=== PATIENT | male | born 1985 | race Caucasian/White ===

== ENCOUNTER 2017-01-31 15:57 | Inpatient (IN) | payer BC ==
[~2017-01-31] VITALS: Ht 175.3 cm; Wt 111.0 kg
--- NOTE | 2017-01-31 16:28 | NUR ---
PT TO ROOM 5 PER WC. NO CHANGE IN CONDITION
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
[2017-01-31] MEDS ORDERED: NO ROUTINE MEDS (16:39)
[2017-01-31] MEDS ORDERED: HYDROCODONE/APAP 5 mg/325 mg TABLET PO ONE (16:45)
[2017-01-31 16:52] LABS: HCT - HEMATOCRIT 46.9 % (41-53); HGB - HEMOGLOBIN 15.5 GM/DL (13.5-17.5); MEAN CORPUSCULAR HGB 26.9 UUG (26-34); MEAN CORPUSCULAR VOLUME 81.4 UM3 (80-100); MEAN PLATELET VOLUME 9.6 UM3 (9.4-12.4); RED BLOOD COUNT 5.76 M/MM3 (4.50-5.90); WBC - WHITE BLOOD COUNT 12.2 T/MM3 (4.5-11.0)
[2017-01-31 17:26] LABS: BAND NEUTROPHILS # 2.1 T/MM3; LYMPHOCYTES # (MANUAL) 0.9 T/MM3 (1-4.8); MONOCYTES # (MANUAL) 0.1 T/MM3 (0-0.8); NEUTROPHILS #(MANUAL)-ABSOLUTE 9.2 T/MM3 (1.8-7.7); TOTAL CELLS COUNTED 100 %
[2017-01-31] MEDS ORDERED: LEVOFLOXACIN 750 mg IVPB 750 MG in D5W 150 ML IV ONE (18:15)
[2017-01-31] MEDS ORDERED: NORMAL SALINE 1,000 ML IV ONE ×2 (18:15→20:15)
[2017-01-31 18:54] LABS: ALBUMIN/GLOBULIN RATIO 1.5 RATIO (1.1-2.2); ALKALINE PHOSPHATASE 73 U/L (38-126); ALT (SGPT) 72 U/L (21-72); ANION GAP 15 MEQ/L (5-15); AST (SGOT) 36 U/L (17-59); BUN/CREATININE RATIO 10 RATIO (6-26); CALCIUM 9.1 MG/DL (8.4-10.2); CHLORIDE 103 MEQ/L (98-107); CO2 - CARBON DIOXIDE 22 MEQ/L (22-30); CREATININE 0.7 MG/DL (0.8-1.5); GLOMERULAR FILTRATION RATE 131; GLUCOSE 133 MG/DL (75-110); LACTATE - LACTIC ACID 3.3 MMOL/L (0.6-2.2); POTASSIUM 3.5 MEQ/L (3.6-5); SODIUM 140 MEQ/L (134-144); TOTAL PROTEIN 6.7 G/DL (6.3-8.2)
--- NOTE | 2017-01-31 19:05 | NUR ---
ADMIT PT ADMITTED TO ROOM 135, BROUGHT FROM ER VIA WHEELCHAIR. PT ORIENTED TO ROOM.
[2017-01-31] MEDS: NORMAL SALINE 1,000 ML IV SCH (19:23)
[2017-01-31] MEDS ORDERED: VANCOMYCIN 1,000 MG in NORMAL SALINE 250 ML IV SCH (19:45)
[2017-01-31] MEDS ORDERED: ONDANSETRON 4mg/2ml INJECTION IV PRN (20:00)
[2017-01-31] MEDS ORDERED: PROMETHAZINE 25 MG INJECTION IV PRN (20:00)
[2017-01-31] MEDS ORDERED: MILK OF MAGNESIA 30 ML SUSP PO PRN (20:00)
[2017-01-31] MEDS ORDERED: METOCLOPRAMIDE 10mg/2ml INJECTION IV PRN (20:00)
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
[2017-01-31] MEDS: IBUPROFEN 600 MG TABLET PO PRN (20:51)
[2017-01-31 22:16] VITALS: Ht 175.3 cm; Wt 111.0 kg
[2017-01-31 22:29] VITALS: BP 113/67; PULSE 102; RESP 20; TEMP 101.3; O2SAT 96
[2017-01-31 22:40] VITALS: PULSE 106; RESP 20; O2SAT 96
[2017-02-01] MEDS: HEPARIN SUB-Q 5,000 unit/0.5ml vial SQ SCH ×3 (01:21→16:40)
[2017-02-01] MEDS: NORMAL SALINE 1,000 ML IV SCH ×4 (02:19→14:55)
[2017-02-01 04:30] VITALS: BP 124/73; PULSE 97; RESP 16; TEMP 101.7; O2SAT 94
--- NOTE | 2017-02-01 06:15 | NUR ---
SUMMARY PT ALERT AND ORIENTED. SBA WITH TRANSFERS. REPORTS PAIN IN HIS AFFECTED FOOT, RATED 7/10, NORCO GIVEN AND EFFECTIVE. PT HAS TWO OPEN WOUNDS ON THE LEFT FOOT BETWEEN 3-4 TOES AND 4-5 TOES, CULTURES WERE OBTAINED AND SENT TO LAB. PT HAS BEEN PLEASANT AND COOPERATIVE. VSS, PT HAS HAD AN ELEVATED TEMP.
[2017-02-01 08:00] VITALS: BP 132/76; PULSE 96; RESP 17; TEMP 102.9; O2SAT 96
[2017-02-01] MEDS ORDERED: VANCOMYCIN 1,250 MG in NORMAL SALINE 250 ML IV SCH (08:00)
[2017-02-01] MEDS ORDERED: VANCOMYCIN 2,000 MG in NORMAL SALINE 500 ML IV ONE (08:30)
--- NOTE | 2017-02-01 08:59 | NUR ---
ADAMA NUNEZ SCORE IS 5. Addendum: 02/01/17 at 0900 by SHU REYNOSO Amended: Links added.
--- NOTE | 2017-02-01 09:21 | DI ---
Indication: ITS.REASON: left foot cellulitis with possibly tunneling wound, look for oste PROCEDURE: FOOT LEFT 2 VIEWS: Encounter: Initial Comparison: None Findings: There is no acute fracture, dislocation or malalignment identified. No periosteal reaction or osseous destruction to suggest osteomyelitis. Impression: No acute osseous abnormality. .
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
--- NOTE | 2017-02-01 10:41 | NUR ---
VANCOMYCIN CONSULT: Dx: CELLULITIS OF LEFT FOOT AND SYMPTOMS OF SEPSIS Current Renal Fx: SCr = 0.7mg/dl. Will give Vancomycin 1750mg IV q8hrs. Will continue to monitor and adjust regimen to maintain therapeutic levels. Thank you.
[2017-02-01 11:38] LABS: BASOPHILS % (AUTO) 0.2 % (0-2); HCT - HEMATOCRIT 40.2 % (41-53); HGB - HEMOGLOBIN 13.3 GM/DL (13.5-17.5); IMMATURE GRANULOCYTE # (AUTO) 0.02 T/MM3 (0.00-0.03); IMMATURE GRANULOCYTE % (AUTO) 0.2 % (0.0-0.5); LYMPHOCYTES # (AUTO) 1.4 T/MM3 (1-4.8); LYMPHOCYTES % (AUTO) 12.3 % (23-45); MEAN CORPUSCULAR HGB CONC(MCHC 33.1 GM/DL (31-37); MEAN CORPUSCULAR VOLUME 81.5 UM3 (80-100); MEAN PLATELET VOLUME 9.5 UM3 (9.4-12.4); MONOCYTES # (AUTO) 0.8 T/MM3 (0-0.8); MONOCYTES % (AUTO) 6.8 % (0-9.0); NEUTROPHILS % (AUTO) 80.5 % (33-66); RED BLOOD COUNT 4.93 M/MM3 (4.50-5.90); WBC - WHITE BLOOD COUNT 11.2 T/MM3 (4.5-11.0)
[2017-02-01] MEDS: TERBINAFINE 1% CREAM 15gm TUBE TOP SCH ×2 (11:39→16:41)
[2017-02-01 11:47] LABS: ANION GAP 12 MEQ/L (5-15); BUN/CREATININE RATIO 10 RATIO (6-26); CALCIUM 8.1 MG/DL (8.4-10.2); CHLORIDE 104 MEQ/L (98-107); CO2 - CARBON DIOXIDE 21 MEQ/L (22-30); CREATININE 0.7 MG/DL (0.8-1.5); GLOMERULAR FILTRATION RATE 131; GLUCOSE 126 MG/DL (75-110); SODIUM 137 MEQ/L (134-144)
[2017-02-01] MEDS ORDERED: POTASSIUM CHLORIDE 20 MEQ TABLET PO ONE (12:15)
[2017-02-01] MEDS: IBUPROFEN 600 MG TABLET PO PRN (13:43)
--- NOTE | 2017-02-01 15:00 | PDWOUND ---
Wound Documentation Wound Management Wound : Location Modifier: Left, Lower Wound Location: Foot Wound Type: Other (Cellulitsis/ ulcers) Wound Dressing Frequency: daily Wound Duration: 4 days Wound Dressing Status: FOUND: Moist Wound Drainage Amount: Moderate Wound Drainage Description: Serous Wound Drainage Odor: None/Absent Wound General Appearance: FOUND Reddened, FOUND Unapproximated Wound Bed: slough, eschar, fibrin Periwound Description: Bright Red Wound Packing Type: FOUND: Gauze Packing Strips Wound Primary Dressing Type: Gauze Roll/Wrap Comments Consulted Dr Hernandez after seeing pt. Between 3 and 4th and 4th and 5th toes open area that are full of slough. Very painful. Dr ordered MRI and possible debridment tomorrow or . SHU ZAMAN RN Feb 01, 2017 15:00
[2017-02-01 15:17] VITALS: BP 117/73; PULSE 91; RESP 24; TEMP 100.3; O2SAT 96
[2017-02-01] MEDS ORDERED: SALINE FLUSH 10ml SYRINGE ONE (15:30)
[2017-02-01] MEDS ORDERED: GADOBUTROL 10mMol/10ml INJECTION IV ONE (15:30)
--- NOTE | 2017-02-01 15:55 | DI ---
Indication: ITS.REASON: XRAY FOR FOREIGN BODY PRIOR TO MRI PROCEDURE: ORBIT FOR MR PROCEDURE: Encounter: Initial Comparison: None Findings: Nonobstructive nonspecific bowel gas pattern with scattered small bowel air-fluid levels. Moderate stool in the colon. Bony structures are unremarkable. No metallic foreign body identified within the abdomen. Impression: No radiopaque foreign body identified in the abdomen. .
[2017-02-01 16:34] VITALS: BP 129/81; PULSE 84; RESP 24; TEMP 98.8; O2SAT 95
[2017-02-01] MEDS: VANCOMYCIN 1,750 MG in NORMAL SALINE 500 ML IV SCH (16:41)
--- NOTE | 2017-02-01 16:51 | DI ---
Indication: ITS.REASON: Foot swelling, possible abscess left foot. PROCEDURE: MRI FOOT LEFT W/WO CONTRAST: Encounter: Initial Comparison: Left foot radiographs from today Technique: Multiplanar multisequence MR imaging of the left foot was performed with and without contrast. Contrast: 10 mL Gadavist Findings: Bone marrow signal intensity is within normal limits. No acute fracture identified. No dislocation. Diffuse subcutaneous edema is seen particularly in the dorsum of the midfoot. The foot flexor and extensor tendons are grossly intact. No areas of abnormal bony enhancement. There is enhancement within the subcutaneous edema in the midfoot with a lateral predominance. There are couple small pockets of fluid surrounding the fourth toe proximal phalanx best seen on postcontrast coronal images five through nine. The medial pocket measures 10 x 4 mm while the lateral pocket measures 10 x 6 mm. These may be communicating inferiorly. No additional rim-enhancing fluid collections identified. Impression: 1. Evidence of extensive cellulitis with small pockets of abscess surrounding the fourth toe proximal phalanx and PIP joint. These measure about 1 cm in maximal dimension. 2. No MR evidence of osteomyelitis currently. .
--- NOTE | 2017-02-01 18:16 | NUR ---
UPDATE/SUMMARY PTS HAS BEEN A&OX3 TODAY, PTS WOUND WAS ASSESSED BY THE WOUND TEAM AND DR CLOUD.PT WAS SENT TO MRI WHICH IT SHOWED NO SIGNS OF OSTEOMYELITIS, HE WILL BE GOING TO SURGERY FOR A DEBRIDEMENT TOMORROW. PTS NORCO TIME FRAME WAS CHANGED TO Q 4HRS. PT HAS RECEIVED 2 TODAY SO FAR, HE WAS ALSO FEBRILE THIS AM. PT IS NO LONGER FEBRILE. BY WOUND TEAM PLEASE DO NOT USE FUNGAL CREAM. WILL CONTINUE TO MONITOR PT.
[2017-02-01] MEDS ORDERED: HYDROMORPHONE 2mg/ml INJECTION IV PRN (18:45)
--- NOTE | 2017-02-01 22:15 | NUR ---
comfort has been visiting pleasantly. States pain to foot increasing, Dilaudid offered
--- NOTE | 2017-02-01 23:15 | NUR ---
comfort states no relief of pain from Dilaudid, [place] given. Takes with snack, then NPO for noc
[2017-02-02] VITALS (27 sets, daily range): BP systolic 94–142; BP diastolic 49–80; PULSE 16–104; RESP 12–85; TEMP 97.3–101.7; O2SAT 82–99
[2017-02-02] MEDS: VANCOMYCIN 1,750 MG in NORMAL SALINE 500 ML IV SCH ×2 (01:59→09:02)
[2017-02-02] MEDS: HEPARIN SUB-Q 5,000 unit/0.5ml vial SQ SCH ×3 (02:03→17:21)
[2017-02-02] MEDS: ACETAMINOPHEN 325 MG TABLET PO PRN ×2 (04:39→16:30)
--- NOTE | 2017-02-02 04:40 | NUR ---
rest has been sleeping. Awakens easily as lab drawn. States pain increasing. Temp is 101.4. [place] and tylenol given w/ sm. amt water
[2017-02-02 05:26] LABS: BASOPHILS % (AUTO) 0.2 % (0-2); EOSINOPHILS # (AUTO) 0.1 T/MM3 (0-0.5); EOSINOPHILS % (AUTO) 0.9 % (0-4); HCT - HEMATOCRIT 40.3 % (41-53); HGB - HEMOGLOBIN 13.5 GM/DL (13.5-17.5); IMMATURE GRANULOCYTE # (AUTO) 0.02 T/MM3 (0.00-0.03); IMMATURE GRANULOCYTE % (AUTO) 0.2 % (0.0-0.5); LYMPHOCYTES # (AUTO) 2.2 T/MM3 (1-4.8); LYMPHOCYTES % (AUTO) 17.6 % (23-45); MEAN CORPUSCULAR HGB 27.2 UUG (26-34); MEAN CORPUSCULAR HGB CONC(MCHC 33.5 GM/DL (31-37); MEAN CORPUSCULAR VOLUME 81.1 UM3 (80-100); MEAN PLATELET VOLUME 9.6 UM3 (9.4-12.4); MONOCYTES # (AUTO) 1.2 T/MM3 (0-0.8); MONOCYTES % (AUTO) 10.1 % (0-9.0); NEUTROPHILS #(AUTO)-ABSOLUTE 8.8 T/MM3 (1.8-7.7); RED BLOOD COUNT 4.97 M/MM3 (4.50-5.90); WBC - WHITE BLOOD COUNT 12.3 T/MM3 (4.5-11.0)
[2017-02-02 05:43] LABS: ANION GAP 11 MEQ/L (5-15); BUN/CREATININE RATIO 13 RATIO (6-26); CALCIUM 8.2 MG/DL (8.4-10.2); CHLORIDE 104 MEQ/L (98-107); CO2 - CARBON DIOXIDE 23 MEQ/L (22-30); CREATININE 0.7 MG/DL (0.8-1.5); GLOMERULAR FILTRATION RATE 131; GLUCOSE 116 MG/DL (75-110); POTASSIUM 3.7 MEQ/L (3.6-5); SODIUM 138 MEQ/L (134-144)
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
[2017-02-02] MEDS: HYDROMORPHONE 2mg/ml INJECTION IV PRN (08:58)
[2017-02-02] MEDS ORDERED: LR 1,000 ML IV PRN (12:19)
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
[2017-02-02] MEDS ORDERED: LIDOCAINE (2%) 100 MG/5 ML PF SYRINGE IV ONE (12:29)
[2017-02-02] MEDS ORDERED: PROPOFOL 200mg 20 ML IV ONE (12:29)
[2017-02-02] MEDS ORDERED: FENTANYL 100mcg/2ml INJECTION ONE ×2 (12:30→12:39)
[2017-02-02] MEDS ORDERED: LIDOCAINE 1% (10mg/ml) 30ml SDV ONE (12:39)
[2017-02-02] MEDS ORDERED: BUPIVACAINE 0.25% (2.5mg/ml) INJ 30ml SDV ONE (12:39)
[2017-02-02] MEDS ORDERED: PROPOFOL 500mg 50 ML IV ONE (12:49)
[2017-02-02] MEDS ORDERED: ROPIVACAINE 0.5% (5mg/ml) 30ml INJ ONE (13:00)
--- NOTE | 2017-02-02 13:32 | NUR ---
VERBAL CONSENT FOR POPLITEAL NERVE BLOCK RECIEVED VIA PHONE FROM MOTHER, MEKA DENG WITH ASSISTANCE OF CEMENT WORKER AT HER PLACE OF EMPLOYMENT. VERBAL CONSENT WITNESSED BY EMIR LIMA RN AND DEISY CHAUDHARY RN.
--- NOTE | 2017-02-02 13:51 | ANESPD ---
Peripheral Nerve Blockade Physician: Valerie Covarrubias MD Date: 02/02/17 Surgical Procedure: I and D Left Foot Abcess Discussion Discussed risks/options/alternatives of anesthesia and questions answered. Patient consents. Nursing pain assessment noted. Block Start: 13:36 Block Stop: 13:46 Block Employed: Popliteal Indication: post-operative pain Approach: left side confirmed Position: RLD Patient: Consent, risks/benefits discussed, Informed, post block act. discussed Monitors: EKG, SpO2, NIBP IV Sedation: No Sedation: Awake Initial Vital Signs First Documented Vital Signs Date Time Temp Pulse Resp B/P Pulse Ox O2 Delivery O2 Flow Rate FiO2 01/31/17 16:00 98.1 121 22 134/85 99 Room Air Post Vital Signs Vital Signs Date Time Temp Pulse Resp B/P Pulse Ox O2 Delivery O2 Flow Rate FiO2 02/02/17 13:07 99.5 104 19 108/73 94 Room Air Initial Pain Score: 4 Post Block Score: 3 Ultrasound Used?: Yes Nerve Simulator Parathesia/Pain: with needle placement Injectate Ropivacaine (%): 0.5 Ropivacaine (mL): 30 Was Epi 1:200,000 Used?: No Injection Injection made incrementally with constant monitoring and aspiration every [5] ml. KRAIG MARIANO CRNA Feb 02, 2017 13:51
--- NOTE | 2017-02-02 13:52 | ANESPO ---
Post-Op Note Date 02/02/17 Time: 13:51 Status Pt Participated in Evaluation: Pt participated in person Vital Signs Date Time Temp Pulse Resp B/P Pulse Ox O2 Delivery O2 Flow Rate FiO2 02/02/17 13:07 99.5 104 19 108/73 94 Room Air Respiratory Function: Airway patent, Regular respirations Cardiovascular Function: Regular pulse Telemetry Pattern: SR Pain Level Intensity: 3 Unable to Assess Pain Due To: Pt Sleeping Hydration: IV infusing Complications during Recovery None apparent Follow-Up Instructions Instructions Per Surgeon KRAIG MARIANO CRNA Feb 02, 2017 13:52
--- NOTE | 2017-02-02 15:32 | PDOPERATE ---
Operative Report Date of Operation 02/02/17 Side: Left Preoperative Diagnosis: other (left foot abscess) Postoperative Diagnosis Same as preoperative diagnosis. Operation/Procedure: other (debridement and drainage of left foot abscess) Surgeon Jose Hernandez MD [employer] None Complications None. Anesthesia Plan: GETA Estimated Blood Loss See Anesthesia Record. Fluids Please See Anesthesia Record. Description of Operation Mr. Mccurdy and his left foot were identified and marked in the the preoperative holding area. He was then brought back to the operating suite and proper anesthesia was administered. He was then positioned supine on the operating table. The left lower extremity was then prepped and draped in my normal sterile fashion. Timeout was performed with all operating room personnel. An approximately given immediately before surgery because he is on scheduled vancomycin and we were taking intraoperative cultures. He had 2 open ulcerations largest measuring 2 cm in the webspace between the third and fourth toe and another ulceration measuring 1 cm between the fourth and fifth toes. As a proximally half centimeter skin bridge between these 2 ulcerations plantarly. Within both ulcerations was fibrin appearing subcutaneous tissue was also gross drainage of pus. I begun by sharply debriding both ulcerations to remove the necrotic subcutaneous tissue. I was able to express pus from the foot through both ulcerations with gross pus being plantar. While milking out the pus to new openings develops in the plantar skin proximal to the fourth toe. Drop cultures were taken deep into both ulcerations. I then irrigated the wound with 3 L of normal saline using cystoscopy tubing. I then placed a quarter-inch Osborn drain that was cut down into largest ulcer and came out through the ulcer between the fourth and fifth toes I stuck a second Osborn drain into one of the plantar wounds. This was then dressed with 4 x 4's and a Kerlix. He was then allowed awake from general anesthesia and taken to the recovery room in the care of anesthesia he tolerated procedure well there were no complications. FELICIA HERNANDEZ MD Feb 02, 2017 15:32
--- NOTE | 2017-02-02 16:11 | NUR ---
VANCOMYCIN CONSULT (Day 3) S: 31 y/o M admitted with a left foot abscess. Started on vancomycin empirically. Pharmacy consulted to manage vancomycin therapy. O: Ht=69 inches, Xs=945 kg, adjusted BW~88 kg SCr=0.7 mg/dL, CrCl>120 mL/min WBC=12.3 T/mm3 24-h Bbho=511.7F L foot MRI: extensive cellulitis, no MR evidence of osteomyelitis currently L foot (non-surgical) culture: Staphylococcus aureus L foot surgical culture: pending Blood cultures, 2 of 2: no growth to date (24 hours) Vancomycin trough concentration~14.5 mcg/mL A/P: Day 3 vancomycin empirically for a left foot abscess. Pt still febrile past two days. Leukocytosis persists. Surgical debridement and drainage completed today. Goal vancomycin trough concentration 15-20 mcg/mL. Will increase vancomycin to 2 g IV q8h. Will continue to follow renal function, clinical status, and await final cultures. Thank you for the consult, Pamela Manning, PharmD, BCPS
[2017-02-02] MEDS: VANCOMYCIN 2 G in NORMAL SALINE 500 ML IV SCH (17:22)
--- NOTE | 2017-02-02 17:50 | NUR ---
Shift Summary Patient alert and oriented x3. VSS. On RA. Patient c/o of pain in left foot this morning, Dilaudid given. See eMar. Patient went to OR for I&D with Dr. Hernandez at 1200, returned with popliteal block and has not c/o pain since. Patient up ad aurelia in room. Foot elevated while in bed. Patient has dressing that was applied in OR, no drainage noted on dressing. IV infusing as ordered through right AC IV. Patient has had adequate urine output today, no BM. Patient is pleasant and cooperative with cares.
--- NOTE | 2017-02-02 20:46 | PNPDOC ---
Subjective Date DATE: 02/02/17 TIME: 20:32 Subjective Mr. Mccurdy complained of pain in his foot when seen this morning. He was seen prior to surgery at which time erythema was improved and limited to only a small area in the anterolateral left foot. He had recurrent fever overnight but denied chills. He denied dyspnea, lightheadedness, palpitations, or nausea. He has not yet ambulated or attempted to ambulate to and from the bathroom. Objective Vital Signs Vital signs Vital Signs Date Time Temp Pulse Resp B/P Pulse Ox O2 Delivery O2 Flow Rate FiO2 02/02/17 17:48 100.2 98 18 127/69 93 Room Air EXAM General-NAD, alert, fluent speech HEENT-conjunctiva clear, conjugate gaze, sclera anicteric Lungs-respirations nonlabored, good airflow, breath sounds clear Cardiac-regular rhythm, S1-S2 Abd-soft, nontender, bowel sounds present Ext-+1 edema left foot, right lower extremity without edema Skin-localized area of erythema over the anterolateral dorsal left foot centered around the fourth fifth toe interspace/metatarsals. There continues to be maceration between the toes and purulent drainage evident between the third and fourth and fourth and fifth toes. Neuro-sensation intact bilateral lower extremities Psych-calm, cooperative, oriented 3 Height (Feet): 5 Height (Inches): 9.00 Weight (Kilograms): 114.900 Laboratory Laboratory Laboratory Tests 02/01/17 11:01 02/02/17 04:33 Laboratory Tests 02/01/17 11:01 02/02/17 04:33 Vancomycin level 14.54 Microbiology Microbiology Microbiology Date/Time Source Procedure Growth Status 01/31/17 18:36 Peripheral/Iv Start Blood Culture - Preliminary NO GROWTH AFTER 48 HOURS Resulted 01/31/17 18:30 Peripheral/Iv Start Blood Culture - Preliminary NO GROWTH AFTER 48 HOURS Resulted 02/02/17 12:45 Foot, Surgical Site Left Gram Stain Pending Resulted 02/02/17 12:45 Foot, Surgical Site Left Surgical Culture - Preliminary CULTURE INITIATED - RESULTS PENDING Resulted 02/01/17 00:36 Foot, Non-Surgical Site Left Gram Stain - Final Resulted 02/01/17 00:36 - Preliminary Staphylococcus Aureus Resulted Radiology MRI of the left foot reviewed-no evidence of osteomyelitis but small abscesses seen around the fourth toe and evidence of edema in the subcutaneous tissues in the lateral forefoot. Sepsis Diagnostic Criteria Sepsis SIRS Criteria: Temp<=96.8 or >=100.4 Severe Sepsis Lactate >=2.0 mg/dL Assessment & Plan Problems: (1) Cellulitis and abscess of foot excluding toe Status: Acute Assessment & Plan: Surgical debridement 02/02-Dr. Hernandez; culture positive staph aureus (2) Severe sepsis Status: Acute Assessment & Plan: Cellulitis White count 12.2 with 17% stabs Tachycardic Lactic acid 3.3 (3) Hypokalemia Status: Acute (4) Leukocytosis Status: Acute (5) Tinea pedis Status: Chronic (6) Alcohol use Status: Chronic Assessment Initial culture positive for staph aureus, additional cultures obtained intraoperatively today for abscesses drained. Soft tissue involvement more extensive than exam suggested per verbal report of Dr. Hernandez following surgery. May require additional debridement but did not require a wound VAC at this time. MRI without evidence of osteomyelitis. Continue vancomycin pending sensitivities; dose increased this evening and response to low trough. Potassium adequately replaced Persistent leukocytosis, anticipate improvement following drainage of abscesses. Plan/Intensity of Service MRI reviewed by myself, discussed with Dr. Hernandez, high-risk medications in use, laboratory data reviewed. Code Status Full Code Hospital Course Summary Disclaimer The hospital course summary below is not to be considered part of the above Progress Note. Hospital Course Summary 01/31-02/01 Patient admitted with left foot cellulitis and pain. Treated with initial dose of Levaquin in the emergency room and switched to vancomycin on admission to the medical service. Laboratory data and vital signs consistent with severe sepsis, initial lactic acid 3.3. Erythema improved overnight but persistent pain. Borderline potassium on admission. X-rays of foot without evidence of periosteal reaction or erosion. 02/02 Initial culture positive for staph aureus, additional cultures obtained intraoperatively today for abscesses drained. Soft tissue involvement more extensive than exam suggested per verbal report of Dr. Hernandez following surgery. May require additional debridement but did not require a wound VAC at this time. MRI without evidence of osteomyelitis. Continue vancomycin pending sensitivities; dose increased this evening and response to low trough. Potassium adequately replaced Persistent leukocytosis, anticipate improvement following drainage of abscesses. KAYLA KEARNS MD Feb 02, 2017 20:35
[2017-02-03] VITALS: BP 117/71; PULSE 77; RESP 18; TEMP 99.5; O2SAT 97
[2017-02-03] MEDS: NORMAL SALINE 1,000 ML IV SCH ×2 (00:53→06:45)
[2017-02-03] MEDS: HEPARIN SUB-Q 5,000 unit/0.5ml vial SQ SCH ×3 (01:01→17:14)
[2017-02-03] MEDS: VANCOMYCIN 2 G in NORMAL SALINE 500 ML IV SCH ×3 (01:01→17:14)
[2017-02-03 01:48] VITALS: BP 117/71; PULSE 77; RESP 18; TEMP 99.5; O2SAT 97
--- NOTE | 2017-02-03 05:40 | NUR ---
SUMMARY PT ALERT AND ORIENTED. VSS. WOUND TO 3-4 AND 4-5 ON THE LT FOOT, DRESSING CLEAN AND DRY, MINIMAL TO NO DRAINAGE. PT REPORTED PAIN 10/10 TO THE LEFT, PRN NORCO GIVEN ORDERED.
[2017-02-03 05:42] LABS: BASOPHILS % (AUTO) 0.3 % (0-2); EOSINOPHILS # (AUTO) 0.2 T/MM3 (0-0.5); EOSINOPHILS % (AUTO) 1.4 % (0-4); HCT - HEMATOCRIT 39.2 % (41-53); IMMATURE GRANULOCYTE # (AUTO) 0.02 T/MM3 (0.00-0.03); IMMATURE GRANULOCYTE % (AUTO) 0.2 % (0.0-0.5); LYMPHOCYTES % (AUTO) 24.5 % (23-45); MEAN CORPUSCULAR HGB 26.7 UUG (26-34); MEAN CORPUSCULAR HGB CONC(MCHC 33.2 GM/DL (31-37); MEAN CORPUSCULAR VOLUME 80.5 UM3 (80-100); MEAN PLATELET VOLUME 9.1 UM3 (9.4-12.4); MONOCYTES # (AUTO) 1.1 T/MM3 (0-0.8); MONOCYTES % (AUTO) 9.2 % (0-9.0); NEUTROPHILS % (AUTO) 64.4 % (33-66); RED BLOOD COUNT 4.87 M/MM3 (4.50-5.90); WBC - WHITE BLOOD COUNT 12.4 T/MM3 (4.5-11.0)
[2017-02-03 05:52] LABS: ANION GAP 12 MEQ/L (5-15); BUN/CREATININE RATIO 9 RATIO (6-26); CALCIUM 8.6 MG/DL (8.4-10.2); CHLORIDE 102 MEQ/L (98-107); CO2 - CARBON DIOXIDE 26 MEQ/L (22-30); CREATININE 0.7 MG/DL (0.8-1.5); GLOMERULAR FILTRATION RATE 131; GLUCOSE 105 MG/DL (75-110); POTASSIUM 3.4 MEQ/L (3.6-5); SODIUM 140 MEQ/L (134-144)
[2017-02-03] MEDS: HYDROMORPHONE 2mg/ml INJECTION IV PRN ×4 (06:12→20:49)
[2017-02-03 07:37] VITALS: BP 118/67; PULSE 73; RESP 18; TEMP 98.1; O2SAT 95
--- NOTE | 2017-02-03 07:54 | PDORTHOPN ---
Subjective Date DATE: 02/03/17 TIME: 07:52 Subjective Doing well, pain controlled. Culture from surgery pending. Pre surgical cultures show Staph aureus. He is presently on Vanco. Objective Vital Signs Vital signs Vital Signs 02/02/17 02/02/17 02/03/17 02/03/17 20:00 21:48 00:00 01:48 Temp 97.3 99.5 99.5 Pulse 85 85 77 77 Resp 18 18 18 B/P 127/79 117/71 117/71 Pulse Ox 97 97 97 O2 Delivery Room Air Room Air Room Air 02/03/17 02/03/17 06:12 07:37 Temp 98.1 Pulse 73 Resp 18 18 B/P 118/67 Pulse Ox 95 O2 Delivery Room Air Height (Feet): 5 Height (Inches): 9.00 Weight (Kilograms): 114.900 General General Appearance: Alert, Orientated x 3, No Acute Distress Respiratory (Brief) Respiratory Brief: FOUND: non-labored Cardiovascular (Brief) Capillary Refill: <2 sec Musculoskeletal (Brief) Hip: FOUND extension-limited, FOUND flexion-limited Surgical Site Incision: FOUND: dressing intact, no drainage Integumentary (Brief) Integumentary Brief: FOUND dry, FOUND pink, FOUND warm Neurologic (Brief) Neurological Brief: FOUND: extremities w/o deficits Psychiatric (Brief) Psychiatric Brief: FOUND: no acute distress Laboratory Laboratory Laboratory Tests 02/01/17 11:01 02/02/17 04:33 02/03/17 05:30 Laboratory Tests 02/01/17 11:01 02/02/17 04:33 02/03/17 05:30 Microbiology Microbiology Microbiology Date/Time Source Procedure Growth Status 01/31/17 18:36 Peripheral/Iv Start Blood Culture - Preliminary NO GROWTH AFTER 48 HOURS Resulted 01/31/17 18:30 Peripheral/Iv Start Blood Culture - Preliminary NO GROWTH AFTER 48 HOURS Resulted 02/02/17 12:45 Foot, Surgical Site Left Gram Stain Pending Resulted 02/02/17 12:45 Foot, Surgical Site Left Surgical Culture - Preliminary CULTURE INITIATED - RESULTS PENDING Resulted 02/01/17 00:36 Foot, Non-Surgical Site Left Gram Stain - Final Resulted 02/01/17 00:36 - Preliminary Staphylococcus Aureus Resulted Assessment & Plan Problems: (1) Foot abscess, left Status: Acute Assessment & Plan: Continue to monitor cultures. Continue Vanco. Hospital Course Summary Disclaimer The visit summary below is not to be considered part of the above Progress Note. Hospital Course 01/31-02/01 Patient admitted with left foot cellulitis and pain. Treated with initial dose of Levaquin in the emergency room and switched to vancomycin on admission to the medical service. Laboratory data and vital signs consistent with severe sepsis, initial lactic acid 3.3. Erythema improved overnight but persistent pain. Borderline potassium on admission. X-rays of foot without evidence of periosteal reaction or erosion. 02/02 Initial culture positive for staph aureus, additional cultures obtained intraoperatively today for abscesses drained. Soft tissue involvement more extensive than exam suggested per verbal report of Dr. Hernandez following surgery. May require additional debridement but did not require a wound VAC at this time. MRI without evidence of osteomyelitis. Continue vancomycin pending sensitivities; dose increased this evening and response to low trough. Potassium adequately replaced Persistent leukocytosis, anticipate improvement following drainage of abscesses. SONNY LANCASTER Feb 03, 2017 07:54
--- NOTE | 2017-02-03 10:38 | NUR ---
VANCOMYCIN SHORT REVIEW: Today's SCr = 0.7mg/dL. Calculated CrCl > 120mL/min Will continue the Vancomycin 2,000mg IV Q8hrs. Will continue to monitor and make adjustments accordingly. Thank you.
[2017-02-03 11:53] VITALS: BP 122/64; PULSE 76; RESP 16; TEMP 98.8; O2SAT 94
[2017-02-03 15:14] VITALS: BP 119/61; PULSE 73; RESP 16; TEMP 97.9; O2SAT 94
--- NOTE | 2017-02-03 15:47 | PNPDOC ---
Subjective Date DATE: 02/03/17 TIME: 15:37 Subjective Patient reports no concerns at this time, adequate pain control alternating Dilaudid and [place]. Pain is limited to his left foot. He denied dyspnea, chest pain, nausea, or constipation. Appetite is good. 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 Objective Vital Signs Vital signs Vital Signs Date Time Temp Pulse Resp B/P Pulse Ox O2 Delivery O2 Flow Rate FiO2 02/03/17 15:14 97.9 73 16 119/61 94 Room Air NAD, alert, fluent speech EOMI, conjugate gaze, conjunctiva clear, oropharynx clear except slight white plaque on tongue Respirations nonlabored, good airflow, breath sounds clear Regular rhythm, S1-S2 Abdomen soft and nontender, bowel sounds present Trace edema left foot and distal left smith Increased erythema lateral aspect of the dorsal left foot extending to the ankle today, not particularly warm; forefoot wrapped. Sensation intact exposed left toes Height (Feet): 5 Height (Inches): 9.00 Weight (Kilograms): 113.800 Laboratory Laboratory Laboratory Tests 02/02/17 04:33 02/03/17 05:30 Laboratory Tests 02/02/17 04:33 02/03/17 05:30 Microbiology Microbiology Microbiology Date/Time Source Procedure Growth Status 01/31/17 18:36 Peripheral/Iv Start Blood Culture - Preliminary NO GROWTH AFTER 48 HOURS Resulted 01/31/17 18:30 Peripheral/Iv Start Blood Culture - Preliminary NO GROWTH AFTER 48 HOURS Resulted 02/02/17 12:45 Foot, Surgical Site Left Gram Stain - Final Resulted 02/02/17 12:45 Surgical Culture - Preliminary Staphylococcus Aureus Resulted 02/01/17 00:36 Foot, Non-Surgical Site Left Gram Stain - Final Complete 02/01/17 00:36 - Final S. Aureus, Meth-Resistant Complete Sepsis Diagnostic Criteria Sepsis SIRS Criteria: Temp<=96.8 or >=100.4 Severe Sepsis Lactate >=2.0 mg/dL Assessment & Plan Problems: (1) Cellulitis and abscess of foot excluding toe Status: Acute Assessment & Plan: Surgical debridement 02/02-Dr. Hernandez; culture positive staph aureus (2) Severe sepsis Status: Acute Assessment & Plan: Cellulitis White count 12.2 with 17% stabs Tachycardic Lactic acid 3.3 (3) Hypokalemia Status: Acute (4) Leukocytosis Status: Acute (5) Tinea pedis Status: Chronic (6) Alcohol use Status: Chronic Assessment Initial culture positive for MRSA, surgical culture positive staph aureus- sensitivities pending. Continue vancomycin at present, will need continuation of IV antibiotics ( versus linezolid) at discharge. Dr. Hernandez consulted to assist with outpatient antibiotics. Blood cultures negative from admission. Soft tissue involvement more extensive than exam suggested per verbal report of Dr. Hernandez following surgery. Anticipate return to the operating room tomorrow. MRI without evidence of osteomyelitis. Resume potassium replacement. Plan/Intensity of Service Discussed with Suresh BURDEN, high-risk medications in use, laboratory data reviewed. DVT Prophylaxis: SCD'S, SQ Heparin Code Status Full Code Hospital Course Summary Disclaimer The hospital course summary below is not to be considered part of the above Progress Note. Hospital Course Summary 01/31-02/01 Patient admitted with left foot cellulitis and pain. Treated with initial dose of Levaquin in the emergency room and switched to vancomycin on admission to the medical service. Laboratory data and vital signs consistent with severe sepsis, initial lactic acid 3.3. Erythema improved overnight but persistent pain. Borderline potassium on admission. X-rays of foot without evidence of periosteal reaction or erosion. 02/02 Initial culture positive for staph aureus, additional cultures obtained intraoperatively today for abscesses drained. Soft tissue involvement more extensive than exam suggested per verbal report of Dr. Hernandez following surgery. May require additional debridement but did not require a wound VAC at this time. MRI without evidence of osteomyelitis. Continue vancomycin pending sensitivities; dose increased this evening and response to low trough. Potassium adequately replaced Persistent leukocytosis, anticipate improvement following drainage of abscesses. 02/03/17 Initial culture positive for MRSA, surgical culture positive staph aureus- sensitivities pending. Continue vancomycin at present, will need continuation of IV antibiotics ( versus linezolid) at discharge. Dr. Hernandez consulted to assist with outpatient antibiotics. Blood cultures negative from admission. Soft tissue involvement more extensive than exam suggested per verbal report of Dr. Hernandez following surgery. Anticipate return to the operating room tomorrow. MRI without evidence of osteomyelitis. Resume potassium replacement. KAYLA KEARNS MD Feb 03, 2017 15:42
[2017-02-03] MEDS: POTASSIUM CHLORIDE 20 MEQ TABLET PO SCH (17:14)
--- NOTE | 2017-02-03 18:41 | NUR ---
Shift Summary Patient alert and oriented x3. VSS. On RA. Patient c/o of pain in left foot wound, alternating Dilaudid and [place] given. See eMar. Patient remained in bed with foot elevated most of the day. Used urinal to void. Patient up ad aurelia in room. IV infusing as ordered through right AC IV. Patient pleasant and cooperative with cares.
[2017-02-03 20:00] VITALS: BP 107/65; PULSE 83; RESP 18; TEMP 99.7; O2SAT 93
[2017-02-04] VITALS (7 sets, daily range): BP systolic 122–135; BP diastolic 69–85; PULSE 64–93; RESP 14–18; TEMP 97.1–99.7; O2SAT 93–98
[2017-02-04] MEDS: HEPARIN SUB-Q 5,000 unit/0.5ml vial SQ SCH ×3 (00:12→18:10)
[2017-02-04] MEDS: VANCOMYCIN 2 G in NORMAL SALINE 500 ML IV SCH ×3 (00:13→18:09)
[2017-02-04] MEDS: HYDROMORPHONE 2mg/ml INJECTION IV PRN ×4 (00:13→12:39)
--- NOTE | 2017-02-04 02:37 | NUR ---
RT AC IV started leaking, PT denies pain no signs of infiltration. alcohol law enforcement agent placed a 20 guage in PT's left hand at this time. RT AC IV discontinued.
[2017-02-04] MEDS: NORMAL SALINE 1,000 ML IV SCH (03:23)
[2017-02-04 05:21] LABS: BASOPHILS # (AUTO) 0.1 T/MM3 (0-0.2); BASOPHILS % (AUTO) 0.5 % (0-2); EOSINOPHILS # (AUTO) 0.4 T/MM3 (0-0.5); EOSINOPHILS % (AUTO) 3.3 % (0-4); HCT - HEMATOCRIT 40.7 % (41-53); HGB - HEMOGLOBIN 13.4 GM/DL (13.5-17.5); IMMATURE GRANULOCYTE # (AUTO) 0.05 T/MM3 (0.00-0.03); IMMATURE GRANULOCYTE % (AUTO) 0.5 % (0.0-0.5); LYMPHOCYTES # (AUTO) 3.6 T/MM3 (1-4.8); LYMPHOCYTES % (AUTO) 32.6 % (23-45); MEAN CORPUSCULAR HGB 26.6 UUG (26-34); MEAN CORPUSCULAR HGB CONC(MCHC 32.9 GM/DL (31-37); MEAN CORPUSCULAR VOLUME 80.9 UM3 (80-100); MEAN PLATELET VOLUME 9.3 UM3 (9.4-12.4); MONOCYTES # (AUTO) 0.8 T/MM3 (0-0.8); MONOCYTES % (AUTO) 7.2 % (0-9.0); NEUTROPHILS #(AUTO)-ABSOLUTE 6.2 T/MM3 (1.8-7.7); NEUTROPHILS % (AUTO) 55.9 % (33-66); RED BLOOD COUNT 5.03 M/MM3 (4.50-5.90); WBC - WHITE BLOOD COUNT 11.1 T/MM3 (4.5-11.0)
[2017-02-04 05:32] LABS: ANION GAP 13 MEQ/L (5-15); BUN/CREATININE RATIO 11 RATIO (6-26); CALCIUM 8.7 MG/DL (8.4-10.2); CHLORIDE 103 MEQ/L (98-107); CO2 - CARBON DIOXIDE 26 MEQ/L (22-30); CREATININE 0.7 MG/DL (0.8-1.5); GLOMERULAR FILTRATION RATE 131; GLUCOSE 105 MG/DL (75-110); MAGNESIUM 2.5 MG/DL (1.6-2.3); POTASSIUM 3.5 MEQ/L (3.6-5); SODIUM 142 MEQ/L (134-144)
[2017-02-04 05:43] LABS: C-REACTIVE PROTEIN 203.2 MG/L (0-9)
--- NOTE | 2017-02-04 08:00 | NUR ---
REPORT RECEIVED PATIENT IS ALERT AND ORIENTED. VERBALIZES PAIN 6/10 TO LEFT FOOT. REQUESTS FOR DILAUDID IV. NS AT 50ML/HR PER LEFT HAND. RA. VITAL SIGNS STEADY.
[2017-02-04] MEDS: POTASSIUM CHLORIDE 20 MEQ TABLET PO SCH (08:53)
--- NOTE | 2017-02-04 09:00 | NUR ---
PROCEDURE IS SCHEDULED FOR TOMORROW. PATIENT WILL EAT NOW AND BE BE NPO AT MIDNIGHT FOR TOMORROW SURGERY.
--- NOTE | 2017-02-04 09:04 | PDORTHOPN ---
Subjective Date DATE: 02/04/17 TIME: 08:59 Subjective Pain controlled. No new complaints. Denies fever, chills, or malaise. Objective Vital Signs Vital signs Vital Signs 02/04/17 02/04/17 02/04/17 02/04/17 00:00 01:13 04:22 07:51 Temp 97.3 98.2 Pulse 64 78 Resp 16 15 14 16 B/P 127/69 130/78 Pulse Ox 96 95 O2 Delivery Room Air Room Air Height (Feet): 5 Height (Inches): 9.00 Weight (Kilograms): 113.800 General General Appearance: Alert, Orientated x 3, Well Nourished, Well Developed, No Acute Distress Respiratory (Brief) Respiratory Brief: FOUND: non-labored Cardiovascular (Brief) Capillary Refill: <2 sec Musculoskeletal (Brief) Hip: FOUND extension-limited, FOUND flexion-limited Surgical Site Incision: FOUND: dressing intact, no drainage Wound Management Wound : Location Modifier: Left, Lateral Wound Loc: Foot Wound Type: Abcess Wound Dressing Status: Changed Wound Drainage Amount: Moderate Wound Drainage Description: Serosanguineous Wound Drainage Odor: None/Absent Wound General Appearance: Draining, Unapproximated Wound Surrounding Tissue: Dark Red, Indurated, Undermined Comments surrounding skin macerated Neurologic (Brief) Neurological Brief: FOUND: extremities w/o deficits Psychiatric (Brief) Psychiatric Brief: FOUND: no acute distress Laboratory Laboratory Laboratory Tests 02/03/17 05:30 02/04/17 04:25 Laboratory Tests 02/03/17 05:30 02/04/17 04:25 Microbiology Microbiology Microbiology Date/Time Source Procedure Growth Status 02/02/17 12:45 Foot, Surgical Site Left Gram Stain - Final Complete 02/02/17 12:45 Surgical Culture - Final S. Aureus, Meth-Resistant Complete Assessment & Plan Problems: (1) Foot abscess, left Status: Acute Assessment & Plan: Wound appears wet today. Will have wound team start absorbant dressing/packing possibly Hydrophera Blue. Will continue to monitor and discuss changes to abx as needed with Hospitalist. I am concerned that his erythema is not improved from surgery. Will consider returning to OR for further debridement and exploration vs repeat MRI if not improved by tomorrow. Hospital Course Summary Disclaimer The visit summary below is not to be considered part of the above Progress Note. Hospital Course 01/31-02/01 Patient admitted with left foot cellulitis and pain. Treated with initial dose of Levaquin in the emergency room and switched to vancomycin on admission to the medical service. Laboratory data and vital signs consistent with severe sepsis, initial lactic acid 3.3. Erythema improved overnight but persistent pain. Borderline potassium on admission. X-rays of foot without evidence of periosteal reaction or erosion. 02/02 Initial culture positive for staph aureus, additional cultures obtained intraoperatively today for abscesses drained. Soft tissue involvement more extensive than exam suggested per verbal report of Dr. Hernandez following surgery. May require additional debridement but did not require a wound VAC at this time. MRI without evidence of osteomyelitis. Continue vancomycin pending sensitivities; dose increased this evening and response to low trough. Potassium adequately replaced Persistent leukocytosis, anticipate improvement following drainage of abscesses. 02/03/17 Initial culture positive for MRSA, surgical culture positive staph aureus- sensitivities pending. Continue vancomycin at present, will need continuation of IV antibiotics ( versus linezolid) at discharge. Dr. Hernandez consulted to assist with outpatient antibiotics. Blood cultures negative from admission. Soft tissue involvement more extensive than exam suggested per verbal report of Dr. Hernandez following surgery. Anticipate return to the operating room tomorrow. MRI without evidence of osteomyelitis. Resume potassium replacement. FELICIA HERNANDEZ MD Feb 04, 2017 09:04
--- NOTE | 2017-02-04 14:18 | PDWOUND ---
Wound Documentation Wound Management Wound : Location Modifier: Left, Lower Wound Location: Foot (Between 5th and 4th toe) Wound Type: Other (Cellulitsis/ ulcers) Wound Dressing Frequency: two times per week Wound Duration: one week Wound Dressing Status: FOUND: Moist Wound Drainage Amount: Moderate Wound Drainage Description: Serosanguineous Wound Drainage Odor: None/Absent Wound General Appearance: FOUND Reddened, FOUND Unapproximated Wound Bed: slough, eschar, fibrin Periwound Description: Bright Red Wound Length (cm): 2.4 Wound Width (cm): 1.4 Wound Depth (cm): 0.3 Exposed: partial Wound Primary Dressing Type: Gauze Roll/Wrap, Hydrofera Blue Comments A wedge of Hydra Fera Blue placed in the toe space then wrapped with gauze. SHU ZAMAN RN Feb 04, 2017 14:18
--- NOTE | 2017-02-04 14:19 | PDWOUND ---
Wound Documentation Wound Management Wound : Location Modifier: Left, Lower Wound Location: Foot (Between 4th and 3rd toe) Wound Type: Other (Cellulitsis/ ulcers) Wound Dressing Frequency: two times per week Wound Duration: one week Wound Dressing Status: FOUND: Moist Wound Drainage Amount: Moderate Wound Drainage Description: Serosanguineous Wound Drainage Odor: None/Absent Wound General Appearance: FOUND Reddened, FOUND Unapproximated Wound Bed: slough, eschar, fibrin Periwound Description: Bright Red Wound Length (cm): 3 Wound Width (cm): 1 Wound Depth (cm): 0.6 Exposed: partial Wound Cleanser: NS Wound Primary Dressing Type: Gauze Roll/Wrap, Hydrofera Blue Comments Hydra Fera Blue wedge placed between toes. SHU ZAMAN RN Feb 04, 2017 14:19
[2017-02-04] MEDS: IBUPROFEN 600 MG TABLET PO PRN ×2 (14:39→20:33)
--- NOTE | 2017-02-04 15:35 | NUR ---
CM SPOKE WITH DR. KEARNS RE: NEED FOR ANTIBIOTIC AT TIME OF DC, PO (ZYVOX) VS. IV ANTIBIOTIC. OBTAINED COST OF ZYVOX [address] FROM [address]: IT WILL BE $368.78. THIS WORKER SPOKE WITH PT ABOUT THIS, AND HIS GIRLFRIEND WAS PRESENT WITH HIS PERMISSION. REVIEWED COST OF THE ZYVOX VS THE POSSIBILITY OF COMING TO [facility] DAILY FOR INFUSION. HE SAID THE COST OF THE ZYVOX IS NOT A BARRIER, BECAUSE HE HAS A MEDICAL/PRESCRIPTION CARD THAT HAS SOME MONEY ON IT THAT HE CAN USE. HE ALSO IS OPEN TO THE POSSIBILITY OF COMING DAILY TO [facility] FOR THE IV INFUSION. HE SAID HE WILL NOT BE GOING TO WORK RIGHT AWAY AND WOULD BE ABLE TO COME DAILY. HE SAID HE WANTS TO DO WHATEVER IS THE BEST, RECOMMENDED COURSE OF CARE FOR HIM. DC PLANNING WILL REMAIN ONGOING
--- NOTE | 2017-02-04 17:19 | NUR ---
PICC PLACEMENT IS IN PROGRESS.
--- NOTE | 2017-02-04 17:25 | NUR ---
VANCOMYCIN CONSULT: Vancomycin Trough = 14.87 mcg/ml. Today's SCr = 0.7 mg/dl. Will continut to give Vancomycin 2,000 mg IV q8hrs. Will continue to monitor and make adjustments accordingly. Thank you.
--- NOTE | 2017-02-04 18:23 | PNPDOC ---
Subjective Date DATE: 02/04/17 TIME: 18:03 Subjective Chano reports persistent pain in his left foot and that he is avoiding any weightbearing although has been ambulating to and from the bathroom. He otherwise has no complaints and denies dyspnea, nausea, or lightheadedness. Appetite is good. Dr. Hernandez reported macerated moist skin on exam today and opted to add drying agents and reassess wound tomorrow before making decision regarding return to the operating room. Objective Vital Signs Vital signs Vital Signs Date Time Temp Pulse Resp B/P Pulse Ox O2 Delivery O2 Flow Rate FiO2 02/04/17 15:51 98.0 93 16 133/82 95 Room Air MAXIMUM TEMPERATURE 99.7 NAD, alert, fluent speech Oropharynx with persistent white film on tongue Neck supple Lungs clear, good airflow, respirations nonlabored Regular rhythm, S1-S2 Abdomen soft and nontender, bowel sounds present No edema right lower extremity, +1 edema left foot with bright erythema of the lateral half of the dorsal foot in the same distribution as yesterday. Sensation intact left toes. Height (Feet): 5 Height (Inches): 9.00 Weight (Kilograms): 113.800 Laboratory Laboratory Laboratory Tests 02/03/17 05:30 02/04/17 04:25 Laboratory Tests 02/03/17 05:30 02/04/17 04:25 Differential unremarkable CRP 203.2 Vancomycin trough 14.87 after 6 doses at 2 g every 8 hours Microbiology Microbiology Microbiology Date/Time Source Procedure Growth Status 02/02/17 12:45 Foot, Surgical Site Left Gram Stain - Final Complete 02/02/17 12:45 Surgical Culture - Final S. Aureus, Meth-Resistant Complete Blood cultures 2 negative after 3 days Sepsis Diagnostic Criteria Sepsis SIRS Criteria: Temp<=96.8 or >=100.4 Severe Sepsis Lactate >=2.0 mg/dL Assessment & Plan Problems: (1) Cellulitis and abscess of foot excluding toe Status: Acute Assessment & Plan: Surgical debridement 02/02-Dr. Hernandez; culture positive staph aureus (2) Severe sepsis Status: Acute Assessment & Plan: Cellulitis White count 12.2 with 17% stabs Tachycardic Lactic acid 3.3 (3) Hypokalemia Status: Acute (4) Leukocytosis Status: Acute (5) Tinea pedis Status: Chronic (6) Alcohol use Status: Chronic Assessment Initial culture positive for MRSA, surgical culture positive MRSA. Continue vancomycin at present, erythema on forefoot much brighter the past 2 days and area expanded after initial surgical debridement. Discussed with Dr. Hernandez who was not in [place] today, will likely needs conversion to daptomycin or linezolid at discharge due to high-dose vancomycin needed. Vancomycin trough remains less than 15 on 2 g every 8 hours; if foot does not look clinically improved tomorrow I would be inclined to switch antibiotics. Blood cultures negative from admission. Soft tissue involvement more extensive than exam suggested per verbal report of Dr. Hernandez following surgery 02/02. May return to OR tomorrow depending on exam. MRI without evidence of osteomyelitis. Continue potassium replacement. PICC line to be placed due to continued high dose vancomycin and potential need for daptomycin at discharge. Plan/Intensity of Service Discussed with Dr. Hernandez, high-risk medications in use, laboratory data reviewed. Discussed with pharmacy, case management, and nursing. DVT Prophylaxis: SQ Heparin Code Status Full Code Hospital Course Summary Disclaimer The hospital course summary below is not to be considered part of the above Progress Note. Hospital Course Summary 01/31-02/01 Patient admitted with left foot cellulitis and pain. Treated with initial dose of Levaquin in the emergency room and switched to vancomycin on admission to the medical service. Laboratory data and vital signs consistent with severe sepsis, initial lactic acid 3.3. Erythema improved overnight but persistent pain. Borderline potassium on admission. X-rays of foot without evidence of periosteal reaction or erosion. 02/02 Initial culture positive for staph aureus, additional cultures obtained intraoperatively today for abscesses drained. Soft tissue involvement more extensive than exam suggested per verbal report of Dr. Hernandez following surgery. May require additional debridement but did not require a wound VAC at this time. MRI without evidence of osteomyelitis. Continue vancomycin pending sensitivities; dose increased this evening and response to low trough. Potassium adequately replaced Persistent leukocytosis, anticipate improvement following drainage of abscesses. 02/03/17 Initial culture positive for MRSA, surgical culture positive staph aureus- sensitivities pending. Continue vancomycin at present, will need continuation of IV antibiotics ( versus linezolid) at discharge. Dr. Hernandez consulted to assist with outpatient antibiotics. Blood cultures negative from admission. Soft tissue involvement more extensive than exam suggested per verbal report of Dr. Hernandez following surgery. Anticipate return to the operating room tomorrow. MRI without evidence of osteomyelitis. Resume potassium replacement. 02/04/17 Initial culture positive for MRSA, surgical culture positive MRSA. Continue vancomycin at present, erythema on forefoot much brighter the past 2 days and area expanded after initial surgical debridement. Discussed with Dr. Hernandez who was not in [place] today, will likely needs conversion to daptomycin or linezolid at discharge due to high-dose vancomycin needed. Vancomycin trough remains less than 15 on 2 g every 8 hours; if foot does not look clinically improved tomorrow I would be inclined to switch antibiotics. Blood cultures negative from admission. Soft tissue involvement more extensive than exam suggested per verbal report of Dr. Hernandez following surgery 02/02. May return to OR tomorrow depending on exam. MRI without evidence of osteomyelitis. Continue potassium replacement. PICC line to be placed due to continued high dose vancomycin and potential need for daptomycin at discharge. KAYLA KEARNS MD Feb 04, 2017 18:07
--- NOTE | 2017-02-04 18:45 | NUR ---
SWELLING PICC WAS PLACED TO [facility]. VANCOMYCIN WAS STARTED. PATIENT'S RIGHT FOREARM BECAME RED WARM AND SWOLLEN. VANCOMYCIN RATE IS SLOWED. PATIENT SAYS THIS HAD HAPPENED BEFORE, HE ONLY DRUNK MILK, THE SWELLING SUBSIDED. MILK WAS OFFERED. DECLINED NEW ORDER FOR BENADRYL. WILL CONTINUE TO MONITOR THE SWELLING.
--- NOTE | 2017-02-04 18:52 | NUR ---
VANCOMYCIN PATIENT HAD RECEIVED SEVERAL DOSES OF VANCOMYCIN BEFORE WITHOUT REPORTED REACTION. ITS UNKNOWN AT THIS TIME THAT THE SWELLING AND REDNESS OF PATIENT'S ARM IN DUE TO VANCOMYCIN
[2017-02-05] MEDS: HYDROMORPHONE 2mg/ml INJECTION IV PRN (00:01)
[2017-02-05] MEDS: HEPARIN SUB-Q 5,000 unit/0.5ml vial SQ SCH ×3 (01:00→17:47)
[2017-02-05] MEDS: VANCOMYCIN 2 G in NORMAL SALINE 500 ML IV SCH ×2 (01:00→08:41)
--- NOTE | 2017-02-05 04:00 | NUR ---
Chart Check 24 hour chart check completed
[2017-02-05 05:26] LABS: BASOPHILS # (AUTO) 0.1 T/MM3 (0-0.2); BASOPHILS % (AUTO) 0.6 % (0-2); EOSINOPHILS # (AUTO) 0.5 T/MM3 (0-0.5); EOSINOPHILS % (AUTO) 5.3 % (0-4); HCT - HEMATOCRIT 39.7 % (41-53); HGB - HEMOGLOBIN 13.3 GM/DL (13.5-17.5); IMMATURE GRANULOCYTE # (AUTO) 0.12 T/MM3 (0.00-0.03); IMMATURE GRANULOCYTE % (AUTO) 1.2 % (0.0-0.5); LYMPHOCYTES # (AUTO) 3.1 T/MM3 (1-4.8); LYMPHOCYTES % (AUTO) 31.1 % (23-45); MEAN CORPUSCULAR HGB 27.3 UUG (26-34); MEAN CORPUSCULAR HGB CONC(MCHC 33.5 GM/DL (31-37); MEAN CORPUSCULAR VOLUME 81.4 UM3 (80-100); MONOCYTES # (AUTO) 0.7 T/MM3 (0-0.8); MONOCYTES % (AUTO) 7.5 % (0-9.0); NEUTROPHILS #(AUTO)-ABSOLUTE 5.4 T/MM3 (1.8-7.7); NEUTROPHILS % (AUTO) 54.3 % (33-66); RED BLOOD COUNT 4.88 M/MM3 (4.50-5.90); WBC - WHITE BLOOD COUNT 9.9 T/MM3 (4.5-11.0)
[2017-02-05 05:43] LABS: ANION GAP 12 MEQ/L (5-15); BUN/CREATININE RATIO 17 RATIO (6-26); CALCIUM 8.7 MG/DL (8.4-10.2); CHLORIDE 107 MEQ/L (98-107); CO2 - CARBON DIOXIDE 24 MEQ/L (22-30); CREATININE 0.7 MG/DL (0.8-1.5); GLOMERULAR FILTRATION RATE 131; GLUCOSE 100 MG/DL (75-110); POTASSIUM 4.1 MEQ/L (3.6-5); SODIUM 143 MEQ/L (134-144)
--- NOTE | 2017-02-05 07:16 | PDORTHOPN ---
Subjective Date DATE: 02/05/17 TIME: 07:11 Subjective Pain controlled. No new complaints. Denies fever, chills, or malaise. Objective Vital Signs Vital signs Vital Signs 02/04/17 02/04/17 02/04/17 20:00 20:00 23:57 Temp 97.1 97.8 Pulse 73 73 72 Resp 18 18 16 B/P 131/85 122/77 Pulse Ox 98 96 O2 Delivery Room Air Room Air Height (Feet): 5 Height (Inches): 9.00 Weight (Kilograms): 113.800 General General Appearance: Alert, Orientated x 3, Well Nourished, Well Developed, No Acute Distress Respiratory (Brief) Respiratory Brief: FOUND: non-labored Cardiovascular (Brief) Cardiac: FOUND: calf soft, nontender, pedal pulses intact Capillary Refill: <2 sec Surgical Site Incision: FOUND: dressing intact, no drainage Wound Management Wound : Location Modifier: Left, Lateral Wound Loc: Foot Wound Type: Abcess Wound Dressing Status: Dry & Intact Wound Drainage Amount: Minimal Wound Drainage Description: Serosanguineous Wound Drainage Odor: None/Absent Wound General Appearance: Unapproximated Comments Hydrofera Blue dressing intact. Wound are much improved from yesterday. Skin is no longer macerated and the swelling has resolved. The erythema is still present but not as bright today. Neurologic (Brief) Neurological Brief: FOUND: extremities w/o deficits Psychiatric (Brief) Psychiatric Brief: FOUND: no acute distress Laboratory Laboratory Laboratory Tests 02/04/17 04:25 02/05/17 04:38 Laboratory Tests 02/04/17 04:25 02/05/17 04:38 Microbiology Microbiology Microbiology Date/Time Source Procedure Growth Status 02/02/17 12:45 Foot, Surgical Site Left Gram Stain - Final Complete 02/02/17 12:45 Surgical Culture - Final S. Aureus, Meth-Resistant Complete Assessment & Plan Problems: (1) Foot abscess, left Status: Acute Assessment & Plan: His wounds are much improved with the dressing. Recommend continuing Hydrofera Blue dressing to be changed every other day. This can be done with home health or a family member. Continue antibiotics. May be discharged from an orthopedic standpoint. If he is discharged to have him follow -up in wound clinic early next week. Hospital Course Summary Disclaimer The visit summary below is not to be considered part of the above Progress Note. Hospital Course 01/31-02/01 Patient admitted with left foot cellulitis and pain. Treated with initial dose of Levaquin in the emergency room and switched to vancomycin on admission to the medical service. Laboratory data and vital signs consistent with severe sepsis, initial lactic acid 3.3. Erythema improved overnight but persistent pain. Borderline potassium on admission. X-rays of foot without evidence of periosteal reaction or erosion. 02/02 Initial culture positive for staph aureus, additional cultures obtained intraoperatively today for abscesses drained. Soft tissue involvement more extensive than exam suggested per verbal report of Dr. Hernandez following surgery. May require additional debridement but did not require a wound VAC at this time. MRI without evidence of osteomyelitis. Continue vancomycin pending sensitivities; dose increased this evening and response to low trough. Potassium adequately replaced Persistent leukocytosis, anticipate improvement following drainage of abscesses. 02/03/17 Initial culture positive for MRSA, surgical culture positive staph aureus- sensitivities pending. Continue vancomycin at present, will need continuation of IV antibiotics ( versus linezolid) at discharge. Dr. Hernandez consulted to assist with outpatient antibiotics. Blood cultures negative from admission. Soft tissue involvement more extensive than exam suggested per verbal report of Dr. Hernandez following surgery. Anticipate return to the operating room tomorrow. MRI without evidence of osteomyelitis. Resume potassium replacement. 02/04/17 Initial culture positive for MRSA, surgical culture positive MRSA. Continue vancomycin at present, erythema on forefoot much brighter the past 2 days and area expanded after initial surgical debridement. Discussed with Dr. Hernandez who was not in [place] today, will likely needs conversion to daptomycin or linezolid at discharge due to high-dose vancomycin needed. Vancomycin trough remains less than 15 on 2 g every 8 hours; if foot does not look clinically improved tomorrow I would be inclined to switch antibiotics. Blood cultures negative from admission. Soft tissue involvement more extensive than exam suggested per verbal report of Dr. Hernandez following surgery 02/02. May return to OR tomorrow depending on exam. MRI without evidence of osteomyelitis. Continue potassium replacement. PICC line to be placed due to continued high dose vancomycin and potential need for daptomycin at discharge. FELICIA HERNANDEZ MD Feb 05, 2017 07:15
[2017-02-05 07:18] VITALS: BP 122/85; PULSE 67; RESP 16; TEMP 97.1; O2SAT 97
--- NOTE | 2017-02-05 07:49 | NUR ---
SHFIT SUMMARY PT IS ALERT AND ORIENTED X 3. COOPERATIVE WITH CARES. PICC IN UPPER RIGHT ARM INTACT AND FLUSH WELL. NOTED PT CONTINUES TO HAVE SWELLING TO RIGHT ARM. UPPER MEASURED 14"-FA 12"-WRIST 8'. NOTED SOME REDNESS TO HAND AND FA. PT DENIES DISCOMFORT OR INCREASED SWELLING. IVF RUNNING IN LEFT HAND. VANCOMYCIN RAN IN THE LEFT HAND AT A SLOW RATE. PT TOLERATED IT WELL WITHOUT REDNESS OR SWELLING. NORCO X 1 GIVEN AND DILAUDID GIVEN X 1 WHEN IT WAS TO EARLY FOR NORCO. DRESSING INTACT TO PT'S LEFT FOOT. CALL LIGHT WITHIN REACH.
[2017-02-05] MEDS: POTASSIUM CHLORIDE 20 MEQ TABLET PO SCH (08:38)
[2017-02-05] MEDS: NORMAL SALINE 1,000 ML IV SCH (08:40)
[2017-02-05 11:38] VITALS: BP 125/68; PULSE 74; RESP 14; TEMP 97.6; O2SAT 94
--- NOTE | 2017-02-05 11:52 | NUR ---
Status Patient alert and oriented. Pain has subsided since percocet this am after dressing change. Denies nausea/SOA. Right arm continues to be swollen however patient states the erythema and edema has improved. Left foot has wrinkles from decrease in swelling and patient reports not as bright red in color.
--- NOTE | 2017-02-05 12:25 | PNPDOC ---
Subjective Date DATE: 02/05/17 TIME: 12:18 Subjective Had erythema and swelling at his RUE PICC site after vancomycin last night, lasted several hours, he thinks drinking milk made it go away. He states he has had a similar reaction to a blood transfusion in the past. PICC flushing and aspirating without difficulty. Receiving IV vanco this morning via peripheral line with no issues. Denies dyspnea, fevers, chills. Pain is controlled. Left foot bandaged and no erythema above the ankle. Objective Vital Signs Vital signs Vital Signs Date Time Temp Pulse Resp B/P Pulse Ox O2 Delivery O2 Flow Rate FiO2 02/05/17 11:38 97.6 74 14 125/68 94 Room Air Height (Feet): 5 Height (Inches): 9.00 Weight (Kilograms): 113.900 General General Appearance: Alert, Orientated x 3, No Acute Distress Eyes (Brief) Eyes: FOUND: EOMI, PERRL, NOT FOUND: scleral icterus Neck (Brief) Neck: NOT FOUND: JVD, adenopathy Respiratory (Brief) Respiratory: FOUND: clear all meneses, equal bilaterally, NOT FOUND: rales, wheezes Cardiovascular (Brief) Cardiac: FOUND: regular rate, regular rhythm, NOT FOUND: pedal edema Abdomen (Brief) Abdominal: FOUND: soft, NOT FOUND: distended, tender Extremities (Brief) Extremity : Comments Left foot with gauze bandage, no edema above the ankle, no visible erythema beyond the bandage RUE PICC intact with area of patchy erythema around it at the mid upper arm Integumentary (Brief) Integumentary: FOUND: dry, warm Psychiatric (Brief) Psychiatric: FOUND: alert, attentive, normal affect, oriented Laboratory Laboratory Laboratory Tests 02/04/17 04:25 02/05/17 04:38 Laboratory Tests 02/04/17 04:25 02/05/17 04:38 Microbiology Microbiology Microbiology Date/Time Source Procedure Growth Status 02/02/17 12:45 Foot, Surgical Site Left Gram Stain - Final Complete 02/02/17 12:45 Surgical Culture - Final S. Aureus, Meth-Resistant Complete Sepsis Diagnostic Criteria Sepsis SIRS Criteria: Temp<=96.8 or >=100.4 Severe Sepsis Lactate >=2.0 mg/dL Assessment & Plan Problems: (1) Cellulitis and abscess of foot excluding toe Status: Acute Assessment & Plan: Surgical debridement 02/02-Dr. Hernandez; culture positive staph aureus (2) Severe sepsis Status: Acute Assessment & Plan: Cellulitis White count 12.2 with 17% stabs Tachycardic Lactic acid 3.3 (3) Hypokalemia Status: Acute (4) Leukocytosis Status: Acute (5) Tinea pedis Status: Chronic (6) Alcohol use Status: Chronic Assessment Initial culture positive for MRSA, surgical culture positive MRSA. Improving, requiring high dose vanco Q8H however and now with ? vanco reaction yesterday. Will change to linezolid [place] today [place] [place] and monitor as twice daily dosing would be better for home health administration. Blood cultures negative from admission. Soft tissue involvement more extensive than exam suggested per verbal report of Dr. Hernandez following surgery 02/02, improving today however with no plans to return to OR acutely. MRI without evidence of osteomyelitis. Continue potassium replacement, K stable on current dosing. Monitor PICC with linezolid infusion to ensure it is functional. Plan/Intensity of Service Discussed with nursing staff and case management, high-risk medications in use, laboratory data reviewed. Code Status Full Code Hospital Course Summary Disclaimer The hospital course summary below is not to be considered part of the above Progress Note. Hospital Course Summary 01/31-02/01 Patient admitted with left foot cellulitis and pain. Treated with initial dose of Levaquin in the emergency room and switched to vancomycin on admission to the medical service. Laboratory data and vital signs consistent with severe sepsis, initial lactic acid 3.3. Erythema improved overnight but persistent pain. Borderline potassium on admission. X-rays of foot without evidence of periosteal reaction or erosion. 02/02 Initial culture positive for staph aureus, additional cultures obtained intraoperatively today for abscesses drained. Soft tissue involvement more extensive than exam suggested per verbal report of Dr. Hernandez following surgery. May require additional debridement but did not require a wound VAC at this time. MRI without evidence of osteomyelitis. Continue vancomycin pending sensitivities; dose increased this evening and response to low trough. Potassium adequately replaced Persistent leukocytosis, anticipate improvement following drainage of abscesses. 02/03/17 Initial culture positive for MRSA, surgical culture positive staph aureus- sensitivities pending. Continue vancomycin at present, will need continuation of IV antibiotics ( versus linezolid) at discharge. Dr. Hernandez consulted to assist with outpatient antibiotics. Blood cultures negative from admission. Soft tissue involvement more extensive than exam suggested per verbal report of Dr. Hernandez following surgery. Anticipate return to the operating room tomorrow. MRI without evidence of osteomyelitis. Resume potassium replacement. 02/04/17 Initial culture positive for MRSA, surgical culture positive MRSA. Continue vancomycin at present, erythema on forefoot much brighter the past 2 days and area expanded after initial surgical debridement. Discussed with Dr. Hernandez who was not in [place] today, will likely needs conversion to daptomycin or linezolid at discharge due to high-dose vancomycin needed. Vancomycin trough remains less than 15 on 2 g every 8 hours; if foot does not look clinically improved tomorrow I would be inclined to switch antibiotics. Blood cultures negative from admission. Soft tissue involvement more extensive than exam suggested per verbal report of Dr. Hernandez following surgery 02/02. May return to OR tomorrow depending on exam. MRI without evidence of osteomyelitis. Continue potassium replacement. PICC line to be placed due to continued high dose vancomycin and potential need for daptomycin at discharge. 02/05/17 Initial culture positive for MRSA, surgical culture positive MRSA. Improving, requiring high dose vanco Q8H however and now with ? vanco reaction yesterday. Will change to linezolid IV today ([facility] [place]) and monitor as twice daily dosing would be better for home health administration. Blood cultures negative from admission. Soft tissue involvement more extensive than exam suggested per verbal report of Dr. Hernandez following surgery 02/02, improving today however with no plans to return to OR acutely. MRI without evidence of osteomyelitis. Continue potassium replacement, K stable on current dosing. Monitor PICC with linezolid infusion to ensure it is functional. TEODORA SIMS MD Feb 05, 2017 12:22
[2017-02-05 15:57] VITALS: BP 130/77; PULSE 86; RESP 16; TEMP 99; O2SAT 95
--- NOTE | 2017-02-05 16:32 | NUR ---
Status Patient complains of pain to left foot after doing leg exercises in bed, pain pain pill given. Adequate output. Good appetite. Breathing comfortably on RA.
[2017-02-05 20:00] VITALS: PULSE 63; RESP 18
[2017-02-05] MEDS: D5W IV SCH (21:02)
[2017-02-05] MEDS: LINEZOLID IV SCH (21:02)
[2017-02-05 21:14] VITALS: BP 129/80; PULSE 81; RESP 16; TEMP 99.4; O2SAT 96
[2017-02-05] MEDS: IBUPROFEN 600 MG TABLET PO PRN (23:37)
[2017-02-06] MEDS: HEPARIN SUB-Q 5,000 unit/0.5ml vial SQ SCH ×3 (01:00→17:31)
[2017-02-06 04:02] VITALS: BP 114/75; PULSE 63; RESP 16; TEMP 96.5; O2SAT 96
[2017-02-06 05:41] LABS: HCT - HEMATOCRIT 40.4 % (41-53); HGB - HEMOGLOBIN 13.4 GM/DL (13.5-17.5); MEAN CORPUSCULAR HGB 26.9 UUG (26-34); MEAN CORPUSCULAR HGB CONC(MCHC 33.2 GM/DL (31-37); MEAN CORPUSCULAR VOLUME 81.1 UM3 (80-100); MEAN PLATELET VOLUME 8.8 UM3 (9.4-12.4); RED BLOOD COUNT 4.98 M/MM3 (4.50-5.90); WBC - WHITE BLOOD COUNT 13.6 T/MM3 (4.5-11.0)
[2017-02-06 05:45] LABS: ALBUMIN 3.4 G/DL (3.5-5.0); ANION GAP 14 MEQ/L (5-15); BUN/CREATININE RATIO 13 RATIO (6-26); CALCIUM 9.1 MG/DL (8.4-10.2); CHLORIDE 103 MEQ/L (98-107); CO2 - CARBON DIOXIDE 25 MEQ/L (22-30); CREATININE 0.8 MG/DL (0.8-1.5); GLOMERULAR FILTRATION RATE 112; GLUCOSE 98 MG/DL (75-110); PHOSPHORUS 5.1 MG/DL (2.5-4.5); POTASSIUM 3.9 MEQ/L (3.6-5); SODIUM 142 MEQ/L (134-144)
--- NOTE | 2017-02-06 06:30 | NUR ---
STATUS PATIENT ALERT AND ORIENTEDX3. PATIENT C/O PAIN LEFT FOOT . PRN NORCO AND MOTRIN WAS ADMINISTRATED . PATIENT USED URINAL AT NIGHT. ADEQUATE URINARY OUTPUT. SM OLD BLOOD DRAINAGE ON BANDAGE WAS CIRCLED. ON ROOM AIR.DENIES CHEST PAIN ,SOA,OR N/V. ABX RUNNING WELL THROUGH PICC. NO SWELLING OR REDNESS AT SITE. CALL LIGHT WITHIN REACH .CONTINUE TO MONITOR.
[2017-02-06 07:19] VITALS: BP 123/74; PULSE 68; RESP 16; TEMP 96.8; O2SAT 96
[2017-02-06] MEDS: LINEZOLID IV SCH ×2 (08:03→21:00)
[2017-02-06] MEDS: D5W IV SCH ×2 (08:03→21:00)
[2017-02-06] MEDS: POTASSIUM CHLORIDE 20 MEQ TABLET PO SCH (08:04)
--- NOTE | 2017-02-06 10:41 | NUR ---
Comfort Dressing change performed, patient complains of pain 03/26. [place] given.
--- NOTE | 2017-02-06 10:54 | PNPDOC ---
Subjective Date DATE: 02/06/17 TIME: 10:48 Subjective No new events overnight. Tolerated linezolid IV well without any reactions. Eating well, pain controlled in the right foot and improving with time. Erythema and edema improved as well. PICC functioning well. Objective Vital Signs Vital signs Vital Signs Date Time Temp Pulse Resp B/P Pulse Ox O2 Delivery O2 Flow Rate FiO2 02/06/17 07:19 96.8 68 16 123/74 96 Room Air Height (Feet): 5 Height (Inches): 9.00 Weight (Kilograms): 111.400 General General Appearance: Alert, Orientated x 3, Cooperative Eyes (Brief) Eyes: FOUND: EOMI, PERRL, NOT FOUND: scleral icterus ENMT (Brief) ENMT: FOUND: hearing intact, mucosa moist Neck (Brief) Neck: NOT FOUND: JVD, adenopathy Respiratory (Brief) Respiratory: FOUND: clear all meneses, equal bilaterally, NOT FOUND: rales Cardiovascular (Brief) Cardiac: FOUND: regular rate, regular rhythm Abdomen (Brief) Abdominal: FOUND: soft, NOT FOUND: distended, tender Extremities (Brief) Extremity : Comments Left foot with gauze bandage intact, decreased edema and erythema surrounding Integumentary (Brief) Integumentary: FOUND: dry, warm, NOT FOUND: rash Psychiatric (Brief) Psychiatric: FOUND: alert, attentive, normal affect, oriented Laboratory Laboratory Laboratory Tests 02/05/17 04:38 02/06/17 05:05 Laboratory Tests 02/05/17 04:38 02/06/17 05:05 Microbiology Microbiology Blood cultures remain negative. Wound/OR cultures both with MRSA. Sepsis Diagnostic Criteria Sepsis SIRS Criteria: Temp<=96.8 or >=100.4 Severe Sepsis Lactate >=2.0 mg/dL Assessment & Plan Problems: (1) Cellulitis and abscess of foot excluding toe Status: Acute Assessment & Plan: Surgical debridement 02/02-Dr. Hernandez; culture positive staph aureus (2) Severe sepsis Status: Acute Assessment & Plan: Cellulitis White count 12.2 with 17% stabs Tachycardic Lactic acid 3.3 (3) Hypokalemia Status: Acute (4) Leukocytosis Status: Acute (5) Tinea pedis Status: Chronic (6) Alcohol use Status: Chronic Assessment & Plan: No evidence of withdrawal Assessment Initial culture positive for MRSA, surgical culture positive MRSA. Improving, requiring high dose vanco Q8H however and now with ? vanco reaction , transitioned to linezolid 02/05 and tolerating well Leukocytosis today at 13K, ? reactive as thrombocytosis as well but will monitor today on IV linezolid to ensure this is a viable plan to complete abx BID Blood cultures negative from admission. Soft tissue involvement more extensive than exam suggested per verbal report of Dr. Hernandez following surgery 02/02, improving today however with no plans to return to OR acutely. MRI without evidence of osteomyelitis. Continue potassium replacement, K stable on current dosing. Monitor PICC with linezolid infusion to ensure it is functional. Plan/Intensity of Service Discussed with nursing staff and case management, high-risk medications in use, laboratory data reviewed. Code Status Full Code Hospital Course Summary Disclaimer The hospital course summary below is not to be considered part of the above Progress Note. Hospital Course Summary 01/31-02/01 Patient admitted with left foot cellulitis and pain. Treated with initial dose of Levaquin in the emergency room and switched to vancomycin on admission to the medical service. Laboratory data and vital signs consistent with severe sepsis, initial lactic acid 3.3. Erythema improved overnight but persistent pain. Borderline potassium on admission. X-rays of foot without evidence of periosteal reaction or erosion. 02/02 Initial culture positive for staph aureus, additional cultures obtained intraoperatively today for abscesses drained. Soft tissue involvement more extensive than exam suggested per verbal report of Dr. Hernandez following surgery. May require additional debridement but did not require a wound VAC at this time. MRI without evidence of osteomyelitis. Continue vancomycin pending sensitivities; dose increased this evening and response to low trough. Potassium adequately replaced Persistent leukocytosis, anticipate improvement following drainage of abscesses. 02/03/17 Initial culture positive for MRSA, surgical culture positive staph aureus- sensitivities pending. Continue vancomycin at present, will need continuation of IV antibiotics ( versus linezolid) at discharge. Dr. Hernandez consulted to assist with outpatient antibiotics. Blood cultures negative from admission. Soft tissue involvement more extensive than exam suggested per verbal report of Dr. Hernandez following surgery. Anticipate return to the operating room tomorrow. MRI without evidence of osteomyelitis. Resume potassium replacement. 02/04/17 Initial culture positive for MRSA, surgical culture positive MRSA. Continue vancomycin at present, erythema on forefoot much brighter the past 2 days and area expanded after initial surgical debridement. Discussed with Dr. Hernandez who was not in [place] today, will likely needs conversion to daptomycin or linezolid at discharge due to high-dose vancomycin needed. Vancomycin trough remains less than 15 on 2 g every 8 hours; if foot does not look clinically improved tomorrow I would be inclined to switch antibiotics. Blood cultures negative from admission. Soft tissue involvement more extensive than exam suggested per verbal report of Dr. Hernandez following surgery 02/02. May return to OR tomorrow depending on exam. MRI without evidence of osteomyelitis. Continue potassium replacement. PICC line to be placed due to continued high dose vancomycin and potential need for daptomycin at discharge. 02/05/17 Initial culture positive for MRSA, surgical culture positive MRSA. Improving, requiring high dose vanco Q8H however and now with ? vanco reaction yesterday. Will change to linezolid IV today ([facility] [place] reviewed) and monitor as twice daily dosing would be better for home health administration. Blood cultures negative from admission. Soft tissue involvement more extensive than exam suggested per verbal report of Dr. Hernandez following surgery 02/02, improving today however with no plans to return to OR acutely. MRI without evidence of osteomyelitis. Continue potassium replacement, K stable on current dosing. Monitor PICC with linezolid infusion to ensure it is functional. 02/06/17 Initial culture positive for MRSA, surgical culture positive MRSA. Improving, requiring high dose vanco Q8H however and now with ? vanco reaction , transitioned to linezolid 02/05 and tolerating well Leukocytosis today at 13K, ? reactive as thrombocytosis as well but will monitor today on IV linezolid to ensure this is a viable plan to complete abx BID Blood cultures negative from admission. Soft tissue involvement more extensive than exam suggested per verbal report of Dr. Hernandez following surgery 02/02, improving today however with no plans to return to OR acutely. MRI without evidence of osteomyelitis. Continue potassium replacement, K stable on current dosing. Monitor PICC with linezolid infusion to ensure it is functional. TEODORA SIMS MD Feb 06, 2017 10:52
[2017-02-06 12:32] VITALS: BP 123/66; PULSE 73; RESP 16; TEMP 97.9; O2SAT 95
--- NOTE | 2017-02-06 13:27 | NUR ---
Status Antibiotics given through PICC line this am, no arm swelling. Dressing changed. Uses urinal at bedside. Good appetite.
[2017-02-06 15:09] VITALS: BP 123/65; PULSE 74; RESP 16; TEMP 98; O2SAT 95
--- NOTE | 2017-02-06 17:36 | NUR ---
Status No change this shift. Up in room on own, steady on feet. Patient to place weight on heel. Dressing c/d/i. Good appetite. Breathing comfortable on RA.
[2017-02-06 20:00] VITALS: BP 109/64; PULSE 69; RESP 16; TEMP 98; O2SAT 94
[2017-02-07] VITALS: BP 113/77; PULSE 79; RESP 16; TEMP 97.6; O2SAT 97
[2017-02-07] MEDS: HEPARIN SUB-Q 5,000 unit/0.5ml vial SQ SCH ×2 (01:41→08:52)
[2017-02-07 04:28] VITALS: BP 94/63; PULSE 66; RESP 18; TEMP 96.6; O2SAT 93
--- NOTE | 2017-02-07 04:30 | NUR ---
SUMMARY PT ALERT, ORIENTED. PAIN RATED 7/10, PRN NORCO X2 GIVEN ORDERED. UP IN ROOM AD [place]. DENIES SOA, OR CHEST PAIN.
[2017-02-07 05:28] LABS: HCT - HEMATOCRIT 42.1 % (41-53); MEAN CORPUSCULAR HGB 27.2 UUG (26-34); MEAN CORPUSCULAR HGB CONC(MCHC 33.3 GM/DL (31-37); MEAN CORPUSCULAR VOLUME 81.7 UM3 (80-100); MEAN PLATELET VOLUME 8.7 UM3 (9.4-12.4); RED BLOOD COUNT 5.15 M/MM3 (4.50-5.90)
[2017-02-07 05:30] LABS: ALBUMIN 3.6 G/DL (3.5-5.0); ANION GAP 13 MEQ/L (5-15); BUN/CREATININE RATIO 14 RATIO (6-26); CALCIUM 9.4 MG/DL (8.4-10.2); CHLORIDE 103 MEQ/L (98-107); CO2 - CARBON DIOXIDE 26 MEQ/L (22-30); CREATININE 0.8 MG/DL (0.8-1.5); GLOMERULAR FILTRATION RATE 112; GLUCOSE 95 MG/DL (75-110); PHOSPHORUS 5.2 MG/DL (2.5-4.5); POTASSIUM 4.2 MEQ/L (3.6-5); SODIUM 142 MEQ/L (134-144)
--- NOTE | 2017-02-07 07:00 | NUR ---
UPDATE: BEGINNING OF SHIT PT IS A&0X3, DENIES ANY PAIN, STATES HE ALREADY ORDERED BREAKFAST. WILL CONTINUE TO MONITOR.
[2017-02-07 08:00] VITALS: BP 123/67; PULSE 70; RESP 16; TEMP 97.6; O2SAT 93
[2017-02-07] MEDS: POTASSIUM CHLORIDE 20 MEQ TABLET PO SCH (08:51)
[2017-02-07] MEDS: D5W IV SCH (08:52)
[2017-02-07] MEDS: LINEZOLID IV SCH (08:52)
[2017-02-07] MEDS ORDERED: LINEZOLID 600 MG TABLET PO SCH (09:15)
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
[2017-02-07] MEDS ORDERED: HYDR-4246 PO (11:17)
--- NOTE | 2017-02-07 11:19 | PD.WORK ---
Work Release DATE: 02/07/17 TIME: 11:17 Work Release Excused for: Chano Mccurdy will need to be excused from work for at least 1 week while he recovers from an infection. Additional work releases will be provided from the wound clinic. DERRICK VIERA APRN Feb 07, 2017 11:19
--- NOTE | 2017-02-07 11:25 | DSPDOC ---
DERRICK VIERA FLUE CLEANER 02/07/17 1056: General Date Date DATE: 02/07/17 TIME: 10:52 Attending Physician Valerie Covarrubias MD Admitting Physician Valerie Covarrubias MD Consulting Physician Taylor Garcia MD, Felicia Conway MD Admitting Diagnosis Severe sepsis, cellulitis Discharge Diagnosis MRSA cellulitis and abscess of left foot hypokalemia - resolved Procedures 02/02/17-debridement and drainage of left foot abscess by Dr. Hernandez PICC line discontinued on 02/07/17 Laboratory Laboratory Tests Test 02/06/17 05:05 02/07/17 04:15 White Blood Count 13.6T/MM3 (4.5-11.0) 16.0T/MM3 (4.5-11.0) Red Blood Count 4.98M/MM3 (4.50-5.90) 5.15M/MM3 (4.50-5.90) Hemoglobin 13.4GM/DL (13.5-17.5) 14.0GM/DL (13.5-17.5) Hematocrit 40.4% (41-53) 42.1% (41-53) Mean Corpuscular Volume 81.1UM3 (80-100) 81.7UM3 (80-100) Mean Corpuscular Hemoglobin 26.9UUG (26-34) 27.2UUG (26-34) Mean Corpuscular Hemoglobin Concent 33.2GM/DL (31-37) 33.3GM/DL (31-37) RDW Standard Deviation 41.9FL (36.9-50.2) 42.7FL (36.9-50.2) Platelet Count 473T/MM3 (130-400) 552T/MM3 (130-400) Mean Platelet Volume 8.8UM3 (9.4-12.4) 8.7UM3 (9.4-12.4) Turbidity < 20 (0-20) < 20 (0-20) Sodium Level 142MEQ/L (134-144) 142MEQ/L (134-144) Potassium Level 3.9MEQ/L (3.6-5) 4.2MEQ/L (3.6-5) Chloride Level 103MEQ/L (98-107) 103MEQ/L (98-107) Carbon Dioxide Level 25MEQ/L (22-30) 26MEQ/L (22-30) Anion Gap 14MEQ/L (5-15) 13MEQ/L (5-15) Blood Urea Nitrogen 10.0MG/DL (9-20) 11.0MG/DL (9-20) Creatinine 0.8MG/DL (0.8-1.5) 0.8MG/DL (0.8-1.5) Glomerular Filtration Rate Calc 112 112 BUN/Creatinine Ratio 13RATIO (6-26) 14RATIO (6-26) Glucose Level 98MG/DL (75-110) 95MG/DL (75-110) Calculated Osmolality 272MOSM/KG (261-280) 272MOSM/KG (261-280) Calcium Level 9.1MG/DL (8.4-10.2) 9.4MG/DL (8.4-10.2) Phosphorus Level 5.1MG/DL (2.5-4.5) 5.2MG/DL (2.5-4.5) Icterus Index < 2 (0-7) < 2 (0-7) Albumin 3.4G/DL (3.5-5.0) 3.6G/DL (3.5-5.0) Chemistry Specimen Hemolysis < 15 (0-25) < 15 (0-25) Microbiology MICROBIOLOGY GRAM STAIN Final 02/03/17-1423 RESULT GRAM POSITIVE COCCI FEW WHITE BLOOD CELLS SURGICAL SITE CULTURE Final 02/04/17-0878 Organism 1 S. AUREUS, METH-RESISTANT MRSA INTERP SERENITY ------ --------- CIPROFLOXACIN S <=0.5 CLINDAMYCIN S 0.25 DOXYCYCLINE S <=0.5 ERYTHROMYCIN R >=8 GENTAMICIN S <=0.5 LEVOFLOXACIN S 0.25 LINEZOLID S 2 OXACILLIN R >=4 TETRACYCLINE S <=1 TRIMETH/SULFA S <=10 VANCOMYCIN S <=0.5 Radiology Left foot x-ray - no abnormality. Left foot MRI - 1. Evidence of extensive cellulitis with small pockets of abscess surrounding the fourth toe proximal phalanx and PIP joint. These measure about 1 cm in maximal dimension. 2. No MR evidence of osteomyelitis currently History of Present Illness Pleasant 31-year-old male presents to the emergency room with left foot pain. He was incarcerated last [place], and tells us that he was barefoot at that time for about 10 minutes in the processing area.. Has suffered from athlete's foot, and thinks he was exposed to staph" possibly. He has had moderate to severe pain is progressive and some subjective fevers and chills. He denies any nausea vomiting headache abdominal pain and black or bloody stools. After receiving some pain medicine it's much better, but he did rate the pain severe at 10 out of 10. He was on the forefoot plantar surface and radiated up the left leg. There has been some purulent drainage from around his toes. The nursing Staff tells me that the wound may be tunneling down inward btw his 3rd and fourth toes. Hospital Course 01/31/17-02/01/17 Patient admitted with left foot cellulitis and severe sepsis. Treated with initial dose of Levaquin in the emergency room and switched to vancomycin on admission. Low potassium on admission. 02/02/17 Initial culture positive for staph aureus, additional cultures obtained intraoperatively today for abscesses drained. MRI without evidence of osteomyelitis. Potassium adequately replaced 02/03/17-02/04/17 Initial culture positive for MRSA, surgical culture positive MRSA. Leukocytosis and thrombocytosis, thought to be reactive. Continue vancomycin at present, erythema on forefoot much brighter the past 2 days and area expanded after initial surgical debridement. PICC line to be placed due to continued high dose vancomycin and potential need for daptomycin at discharge. Possible Vanco reaction 02/05/17 Change abx to linezolid IV 02/06/17 Tolerating linezolid well. Leukocytosis today at 13K, possible reactive as thrombocytosis Continue potassium replacement, K stable on current dosing. 02/07/17 - discharge home Exam: A&O x3, pleasant, no pain. Lungs CTAB, heart RRR, abdomen nontender, dressing on left foot, erythema and swelling subsiding. Per Dr. Hernandez - WBAT on heel. Hydrophera Blue dressing changes every other day. F /U in wound clinic this week. Per Dr. Garcia - Rx linezolid 600 mg BID x14 days. Rx Ronda PRN pain. No work until cleared by Dr. Hernandez and/or wound team. CBC, BMP and CRP on 02/09/17. Problems: (1) Cellulitis and abscess of foot excluding toe Status: Acute Assessment & Plan: Surgical debridement 02/02-Dr. Hernandez; culture positive staph aureus (2) Severe sepsis Status: Resolved Assessment & Plan: Cellulitis White count 12.2 with 17% stabs Tachycardic Lactic acid 3.3 (3) Leukocytosis Status: Acute (4) Hypokalemia Status: Resolved (5) Tinea pedis Status: Chronic (6) Alcohol use Status: Chronic Assessment & Plan: No evidence of withdrawal (7) Thrombocytosis Code Status Full Code Home Meds Active Scripts Linezolid (Zyvox) 600 Mg Tablet, 600 MG PO Q12HR for 14 Days, #27 TAB Prov:DERRICK VIERA FLUE CLEANER 02/07/17 Hydrocodone/Acetaminophen (Ronda 5-325 Tablet) 5-325 Tablet, 1-2 TAB PO Q4-6H, # 20 TAB Prov:DERRICK VIERA FLUE CLEANER 02/07/17 Discontinued Reported Medications [No Routine Meds] No Conflict Check 01/31/17 Face to Face Encounter I met with patient on the day of dismissal and discussed follow up appointments , medications, and safety plan. Discharge Disposition DC home, stable Copies To 1: FELICIA HERNANDEZ MD Copies To 2: TAYLOR GARCIA MD Documentation Requirements Documenting Diagnosis BMI Low or High, SIRS Outpatient Surgery - Inpatient Comments Time spent in DC: 40 min. BMI Low or High Assoc. dx for low or high BMI: Severe Obesity 35-39.9 SIRS SIRS due to: Infection Reason for SIRS: MRSA cellulitis VALERIE COVARRUBIAS MD 02/07/17 1630: Hospital Course I have independently evaluated and examined this patient. I reviewed the chart, the patient's history, and the FLUE CLEANER's documented findings as above. We discussed and formulated the assessment and plan as above with additions as below: Chano reports feeling significantly improved with virtually no discomfort in his left foot and dramatic improvement in erythema on examination. He is ambulating without difficulty. There is minimal faint pink discoloration in the anterior left forefoot without edema on exam today. Patient is alert and speech is fluent. White count slightly increased today-discussed with Dr. Garcia. Converted to oral linrzolid for 14 days with plans to follow-up in wound care clinic and advised to establish with a primary care physician for routine follow -up. Stable for discharge, to be reevaluated in one care clinic before returning to work. Problems: Home Meds Active Scripts Linezolid (Zyvox) 600 Mg Tablet, 600 MG PO Q12HR for 14 Days, #27 TAB Prov:DERRICK VIERA FLUE CLEANER 02/07/17 Hydrocodone/Acetaminophen (Ronda 5-325 Tablet) 5-325 Tablet, 1-2 TAB PO Q4-6H, # 20 TAB Prov:DERRICK VIERA FLUE CLEANER 02/07/17 Discontinued Reported Medications [No Routine Meds] No Conflict Check 01/31/17 Copies To 1: FELICIA HERNANDEZ MD Copies To 2: TAYLOR GARCIA MD, KAREN D FLUE CLEANER Feb 07, 2017 10:56 VALERIE COVARRUBIAS MD Feb 07, 2017 16:30
[2017-02-07 12:00] VITALS: BP 114/68; PULSE 85; RESP 16; TEMP 98.1; O2SAT 95
[2017-02-07] MEDS ORDERED: LINE600T PO (12:58)
--- NOTE | 2017-02-07 13:37 | NUR ---
UPDATE: DISMISSAL PT GIVEN DISMISSAL INSTRUCTIONS, PT STATES UNDERSTANDING AND IS ABLE TO REPEAT EDUCATION GIVEN ON WOUND MANAGEMENT AND PRESCRIPTION. PTS WOUND WAS ASSESSED AND RE-DRESSED BY WOUND TEAM BEFORE DISMISSAL. PT WAS WHEELED OUTSIDE AND WAS PICKED UP BY HIS MOTHER. PICC LINE TO KEIRA AND PERIPHERAL IV TO L HAND WERE DC'D BEFORE DISMISSAL WELL.
--- NOTE | 2017-02-07 13:59 | PDWOUND ---
Wound Documentation Wound Management Wound : Location Modifier: Left, Lower Wound Location: Foot (Between 4th and 3rd toe) Wound Type: Other (Cellulitsis/ ulcers) Wound Dressing Frequency: two times per week Wound Duration: one week Wound Dressing Status: FOUND: Moist Wound Drainage Amount: Moderate Wound Drainage Description: Serosanguineous Wound Drainage Odor: None/Absent Wound General Appearance: FOUND Reddened, FOUND Unapproximated Wound Bed: gran red Periwound Description: Edges Rolled Wound Length (cm): 3.4 Wound Width (cm): 2.5 Wound Depth (cm): 0.3 Exposed: partial Wound Cleanser: NS Wound Primary Dressing Type: Gauze Roll/Wrap, Hydrofera Blue Comments Between 3rd and 4th toe Still remains an area of unapproximated wound. It looks clean, attempted to clean out dried blood however, pt very jumpy and tender. At this time Hydra Fera blue placed in wound and then roll gauze used to keep in place. Wound between 4th and 5th toe is healed. SHU ZAMAN RN Feb 07, 2017 13:59
--- NOTE | 2017-02-07 14:25 | NUR ---
[facility] SCHEDULED FOR TODAY. THIS WORKER SPOKE WITH PT ABOUT THAT, AND HE SAID HE IS READY AND EAGER TO RETURN HOME. 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 PT STATED THIS IS NOT A PROBLEM FOR HIM; THAT HE CAN DRIVE AND HE CAN CHANGE HIS OWN DRESSINGS. REVIEWED COST OF ZYVOX; HE SAID HE WILL USE HIS MEDICAL CARD THAT HAS MONEY ON IT. THIS WORKER EXPLAINED THAT THIS WORKER WILL FOLLOW UP ON THE COST SINCE IT WAS CHANGED FROM 20 PILLS TO 27. ALSO EXPLAINED THAT PER RD, THEY DO NOT HAVE ZYVOX IN STOCK AND HE GAVE PERMISSION FOR THIS WORKER TO CONTACT [facility]. CALLED [facility], THEY HAVE ZYVOX IN STOCK AND WILL RUN THE COST OF 27 PILLS. THIS WORKER IS AWAITING A CALL BACK. Addendum: 02/07/17 at 1429 by BENJAMIN REYNOSO Amended: Links added.
--- NOTE | 2017-02-07 14:34 | NUR ---
CM CALLED [facility], SPOKE WITH CECI. HE SAID THE ZYVOX (GENERIC LINEZOLID) WILL BE $8.00 AND THEY CAN GET IT FILLED TODAY. CALLED PT. HE HAD ALREADY BEEN DISMISSED. HE SAID HE WAS AT [facility] TO GET THE ZYVOX. THIS WORKER REVIEWED WITH HIM HIS OPTION TO GO TO [facility] AND PICK IT UP TODAY, FOR $8.00. HE SAID HE WILL DO THIS. THIS WORKER ASKED HIM TO CALL THIS WORKER IF ISSUES ARISE, AND HE SAID HE DOES STILL HAVE THIS WORKER'S CONTACT INFO.
== END 2017-02-07 14:05 | disposition home or self-care (01) | DRG 854 ==
LOC: ED 15:57 → EDHOLD 19:31 → MED 21:05
PROVIDERS: ADMIT Pediatrics; ATTEND Internal Medicine
PROC: 0JBR0ZZ Excision of Left Foot Subcutaneous Tissue and Fascia, Open Approach (ICD-10-PCS; principal; 2017-02-02 12:40)
DX: A41.9 Sepsis, unspecified organism (principal); L03.116 Cellulitis of left lower limb; R65.20 Severe sepsis without septic shock; E87.6 Hypokalemia; F17.200 Nicotine dependence, unspecified, uncomplicated; F10.20 Alcohol dependence, uncomplicated; B35.3 Tinea pedis
CPT/HCPCS: 36000; 36415; 80048; 80053; 80069; 80202; 83605; 83735; 84145; 85025; 85027; 86140; 87040; 87070; 87075; 87147; 87186; 87205; 96365; 99406; 99407

== ENCOUNTER → 2017-02-10 | Outpatient (CLI) | payer BC ==
[~2017-02-10] MED LIST: HYDR-4246 PO; LINE600T PO; SALINE FLUSH 10ml SYRINGE IVF ONE
== END ==
LOC: NWCC 14:05
PROVIDERS: ATTEND Internal Medicine
DX: S91.105A Unspecified open wound of left lesser toe(s) without damage to nail, initial encounter (principal); L02.612 Cutaneous abscess of left foot; Z83.3 Family history of diabetes mellitus; L03.818 Cellulitis of other sites; B95.62 Methicillin resistant Staphylococcus aureus infection as the cause of diseases classified elsewhere
CPT/HCPCS: 97597; 99213; A6210